=== PATIENT | male | born 1955 | race Caucasian/White ===

== ENCOUNTER 2024-03-08 09:57 | Outpatient (REF) | payer MEDICARE, SELFPAY | END 2024-03-08 09:58 | disposition home or self-care (01) | LOC: HO.BBR 09:57 | PROVIDERS: PCP Internal Medicine Endocrinology, Diabetes & Metabolism; Visit Provider Internal Medicine Hematology & Oncology | DX: D75.1 Secondary polycythemia (principal) | CPT/HCPCS: 85014; 85018; 99195 ==

== ENCOUNTER 2024-06-08 09:31 | Outpatient (REF) | payer MEDICARE, SELFPAY | END 2024-06-08 09:32 | disposition home or self-care (01) | LOC: HO.BBR 09:31 | PROVIDERS: Visit Provider Internal Medicine Hematology & Oncology | DX: D75.1 Secondary polycythemia (principal) | CPT/HCPCS: 85014; 85018; 99195 ==

== ENCOUNTER 2024-09-15 09:22 | Outpatient (REF) | payer MEDICARE, SELFPAY | END 2024-09-15 09:23 | disposition home or self-care (01) | LOC: HO.BBR 09:22 | PROVIDERS: PCP Internal Medicine Endocrinology, Diabetes & Metabolism; Visit Provider Internal Medicine Hematology & Oncology | DX: D75.1 Secondary polycythemia (principal) | CPT/HCPCS: 85014 ==

== ENCOUNTER 2024-12-21 09:22 | Outpatient (REF) | payer MEDICARE, SELFPAY | END 2024-12-21 09:23 | disposition home or self-care (01) | LOC: HO.BBR 09:22 | PROVIDERS: Visit Provider Internal Medicine Hematology & Oncology | DX: D75.1 Secondary polycythemia (principal) | CPT/HCPCS: 85014; 85018; 99195 ==

== ENCOUNTER 2024-12-31 09:27 | Outpatient (REF) | payer MEDICARE, SELFPAY ==
--- OUTSIDE RECORDS SUMMARY | 2024-12-31 10:02 | XMS_ITS | Encounter Summary ---
Author Organization [facility] Address [address] [place] [address] Care Team Providers Care Classer Name Role Phone Sunday Bennett MD Primary Care Provider [phone] Jorge Alberto Huff MD Primary Care Provider [phone] Cecilia Zavala PhD [facility] Reason for Visit * Reason Comments Medication Refill Encounter Details Date Type Department Care Team (Late st Contact Info) Description 07/13/2018 Refill [facility] [address] [phone] Rene Hansen MD [address] [place] [address] Low back pain Social History Tobacco Use Types Packs/Day Years Used Date Smoking Tobacco: Never Alcohol Use Standard Drinks/Week Comments No 0 (1 standard drink = 0.6 oz pur e alcohol) Sex and Gender Information Value Date Recorded Sex Assigned at Male 03/10/2023 8:28 AM EDT Gender Identity Male 03/10/2023 8:28 AM EDT Sexual Orientation Heterosexual (straight) 03/10 8:28 AM EDT documented as of this encounter Plan of Treatment Not on file documented as of this encounter Visit Diagnoses Diagnosis Low back pain Lumbago documented in this encounter Care Teams Classer Relationship Specialty Start Date End Date Sunday Bennett MD [address] [place] [address],[place] [address] PCP - General 01/10/17 08/15/21 Jorge Alberto Huff MD [address] [place] [address] PCP - General Endocrinology 08/16/21 Cecilia Zavala, PhD [address] [place] [address] Clinical Psychologist Psychology 03/22/22 Dr. Jorge Alberto Lebron Physician 01/10/17 documented as of this encounter
--- OUTSIDE RECORDS SUMMARY | 2024-12-31 10:02 | XMS_ITS | Encounter Summary ---
Author Organization [facility] Address [address] [place] [address] Care Team Providers Care Timber Framer Helper Name Role Phone Sunday Bennett MD Primary Care Provider [phone] Jorge Alberto Huff MD Primary Care Provider [phone] Cecilia Zavala PhD Unavailabl e Encounter Details Date Type Department Care Team (Late st Contact Info) Description 10/15/2017 Scanned Document [facility] [address] [place] [phone] Mikala Magallon MD [address] [place] [address] Social History Tobacco Use Types Packs/Day Years Used Date Smoking Tobacco: Never Assessed Sex and Gender Information Value Date Recorded Sex Assigned at Male 03/10/2023 8:28 AM EDT Gender Identity Male 03/10/2023 8:28 AM EDT Sexual Orientation Heterosexual (straight) 03/10 8:28 AM EDT documented as of this encounter Plan of Treatment Not on file documented as of this encounter Visit Diagnoses Not on filedocumented in this encounter Care Teams Timber Framer Helper Relationship Specialty Start Date End Date Sunday Bennett MD [address] [place] [address],[address] [address] PCP - General 01/10/17 08/15/21 Jorge Alberto Huff MD [address] [place] [address] [address] [place] [address] PCP - General Endocrinology 08/16/21 Cecilia Zavala, PhD [address] [place] [address] [address] [place] [address] Clinical Psychologist Psychology 03/22/22 Dr. Jorge Alberto Lebron Physician 01/10/17 documented as of this encounter
--- OUTSIDE RECORDS SUMMARY | 2024-12-31 10:02 | XMS_ITS | Encounter Summary ---
Author Organization [facility] Address [address] [place] [address] Care Team Providers Care Primary Health Organisation Manager Name Role Phone Sunday Bennett MD Primary Care Provider [phone] Jorge Alberto Huff MD Primary Care Provider [phone] Cecilia Zavala PhD Unavailabl e Reason for Visit * Reason Comments Medication Refill Encounter Details Date Type Department Care Team (Late st Contact Info) Description 10/07/2019 Refill [facility] [address] [phone] Mariann Levin PA [address] [phone] Low back pain Social History Tobacco Use Types Packs/Day Years Used Date Smoking Tobacco: Never Smokeless Tobacco: Never Alcohol Use Standard Drinks/Week Comments [...] Lumbago documented in this encounter Care Teams Primary Health Organisation Manager Relationship Specialty Start Date End Date Sunday Bennett MD [address] [place] [address],[place] [address] PCP - General 01/10/17 08/15/21 Jorge Alberto Huff MD [address] [place] [address] 210 [place] [address] PCP - General Endocrinology 08/16/21 Cecilia Zavala, PhD [address] [place] [address] Clinical Psychologist Psychology 03/22/22 Dr. Jorge Alberto Lebron Physician 01/10/17 documented as of this encounter
--- OUTSIDE RECORDS SUMMARY | 2024-12-31 10:02 | XMS_ITS | Clinical Summary ---
Author Organization [facility] Address [address] [place] [address] Care Team Providers Care Drill Press Set Up Operator Radial Name Role Phone Jorge Alberto Huff MD Primary Care Provider [phone] Cecilia Zavala PhD Unavailabl e Allergies Active Allergy Reactions Criticality Noted Date Comments Penicillins Unknown/Patient and Family Unable to Define Medium 10/11/2016 Medications Medication Sig Dispensed Refills Start Date End Date Status atorvastatin (LIPITOR) 10 MG tablet every morning. 10/02/2016 Active cholecalciferol (VITAMIN D3) 1000 units capsule Take 1 capsule (1,000 Units total) by mouth every morning. Active Alpha-Lipoic Acid (LIPOIC ACID PO) Take by mouth every morning. Active famotidine (PEPCID) 20 MG tabletIndications:P ain in joint, pelvic region and thigh, unspecified laterality TAKE 1 TABLET THREE TIMES A DAY WITH IBUPROFEN 270 tablet 1 11/06/2018 Active Additional Information Patient taking differently: As needed, TAKE 1 TABLET THREE TIMES A DAY WITH IBUPROFEN, Reason: Other, Reported on 02/25/2023 ONETOUCH VERIO strip daily. for testing 3 10/02/2019 Active ONETOUCH DELICA LANCETS FINE Misc lancet daily. for testing 3 10/17/2019 Active Dermatological Products, Misc. (EpiCeram) lotion every morning. 12/08/2020 Act radames melatonin 10 MG capsule Take 1 capsule (10 mg total) by mouth nightly. Active Jardiance 10 MG tablet every morning. 02/07/2022 Active hydrOXYzine HCl (ATARAX) 10 MG tablet as needed. 03/27/2022 Active metFORMIN (GLUCOPHAGE) 500 MG tablet Take 1 tablet (500 mg total) by mouth 2 (two) times a day. 12/26/2022 Active DULoxetine (CYMBALTA) 60 MG capsuleIndications: Polyneuropathy associated with critical illness TAKE 1 CAPSULE BY MOUTH EVERY MORNING 90 capsule 10/06/2023 Active Eliquis 5 MG tablet Take 5 mg by mouth 2 (two) times a day. 08/22/2023 Active tirzepatide (Mounjaro) 2.5 mg/0.5 mL pen-injector Inject under the skin. 11/19/2023 Active Active Problems Problem Noted Date Diagnosed Date Chronic pain syndrome 09/27/2022 Polyneuropathy associated with critical illness 01/04/2018 Low back pain without sciatica 10/11/2016 Pain in both lower extremities 10/11/2016 Klippel's disease 03/15/2016 Brachial neuritis 03/15/2016 Cervicalgia 03/15/2016 Low back pain 03/15/2016 Myalgia and myositis 03/15/2016 Pain in joint, shoulder region 03/15/2016 Pain in joint, pelvic region and thigh 6 Postherpetic neuralgia 03/15/2016 Family History Medical History Relation Name Comments Pancreatic cancer Father Breast cancer Mother Diabetes Sister 1 Uterine cancer Sister 1 Breast cancer Sister 2 Relation Name Status Comments Father Mother Sister 1 Sister 2 Alive Social History Tobacco Use Types Packs/Day Years Used Date Smoking Tobacco: Never Smokeless Tobacco: Never Tobacco Cessation:Counseling Given: Not Answered Alcohol Use Standard Drinks/Week Comments No 0 (1 standard drink = 0.6 oz pur e alcohol) AUDIT-C Answer Date Recorded Q1: How often do you have a drink containing alcohol? Never 02/25/2023 Q2: How many drinks containi ng alcohol do you have on a typical day when you are drinking? Patient does not drink Q3: How often do you have si x or more drinks on one occasion? Never 02/25/2023 PHQ-2 Answer Date Recorded PHQ-2 Total Score 0 03/10/2023 Sex and Gender Information Value Date Recorded Sex Assigned at Male 03/10/2023 8:28 AM EDT Gender Identity Male 03/10/2023 8:28 AM EDT Sexual Orientation Heterosexual (straight) 03/10 8:28 AM EDT Last Filed Vital Signs Vital Sign Reading Time Taken Comments Blood Pressure 168/93 11/20/2023 3:45 PM EST Pulse 87 11/20/2023 3:45 PM EST Temperature 36.7 ??C (98 ??F) 11/20/2023 3:45 PM EST Respiratory Rate 18 11/20/2023 3:45 PM EST Oxygen Saturation 92% 11/20/2023 3:45 PM EST Inhaled Oxygen Concentration - - Weight 108 kg (238 lb) 11/20/2023 3:45 PM EST Height 182.9 cm (6') 11/20/2023 3:45 PM EST Body Mass Index 32.28 11/20/2023 3:45 PM EST Plan of Treatment Health Maintenance Due Date Last Done Comments Hepatitis C Virus Screening 1953 Microalbumin/Creatinine Ratio Urine 1971 DTaP/Tdap/Td Vaccines (1 - Tdap) 1972 Colonoscopy 1998 Pneumococcal Vaccines 50+ (1 of 1 - PCV) 2003 Zoster (Shingles) Vaccine (1 of 2) 2003 RSV Vaccine 60 years and older and Patients (1 - Risk 60-74 years 1-dose series) 2013 Influenza Vaccine 07/01/2024 08/22/2023, , 08/30/2022, Additional history exists COVID-19 Vaccine ( season) 2024 08/28/2023, 08/15/2022, 03/18/2022, Additional history exists Foot Exam Discontinued 01/10/2017 Hemoglobin A1C Discontinued 02/27/2023, 05/31/2013 Hepatitis B Vaccines Aged Out No long er eligible based on patient's age to complete this topic Medical Devices Implanted Type Area Machine Joiner Cementer Device Identifier Shelf Expiration Date Model / Serial / Lot [id number] Trial Lead Kit 50cm Slimtip - [id number] Implanted:Qt y: 1 on 02/05/2023 by Ghassan Tejada MD at [facility] Stimulator [employer] 09/23/2024 [id number] / [id number] / [id number] Trial Lead Kit 50cm Slimtip - [id number] Implanted:Qt y: 1 on 02/05/2023 by Ghassan Tejada MD at [facility] Stimulator [employer] 07/21/2024 [id number] / [id number] / [id number] Proclaim Invisible Trial Header, Drg Epg - [id number] Implanted:Qt y: 1 on 02/05/2023 by Ghassan Tejada MD at [facility] Stimulator [employer] 03/19/2024 [id number] / / [id number] Trial Lead Kit 50cm Slimtip - [id number] Implanted:Qt y: 1 on 02/05/2023 by Ghassan Tejada MD at [facility] Stimulator N/A: Spine Lumbar [employer] 09/23/2024 [id number] / / [id number] Trial Lead Kit 50cm Slimtip - [id number] Implanted:Qt y: 1 on 02/05/2023 by Ghassan Tejada MD at [facility] Stimulator N/A: Spine Lumbar [employer] [id number] 07/21/2024 [id number] / [id number] / [id number] Slim Tip Drg Implanted:Qt y: 1 on 03/10/2023 by Karey Jeong MD at [facility] 06/20/2023 / [id number] / [id number] Slim Tip Drg Implanted:Qt y: 1 on 03/10/2023 by Karey Jeong MD at [facility] 03/11/2024 / [id number] / Proclaim Drg Implanted:Qt y: 1 on 03/10/2023 by Karey Jeong MD at [facility] Right: Sacrum Description:Cat#[id number] CONTROL SYSTEM Procedures Procedure Name Priority Date/Time Associated Diagnosis Comments HEMOGLOBIN A1C WITH ESTIMATED AVERAGE GLUCOSE Routine 02/27/2023 9:22 AM EDT Elective surgery from Last 3 Months or Most Recently Relevant to Health Maintenance Results * (ABNORMAL) HEMOGLOBIN A1C WITH ESTIMATED AVERAGE GLUCOSE (02/27/2023 9:22 AM EDT) Hemoglobin A1C 7.1(H) <5.7 % 02/27/2023 3:11 PM EDT [facility] Comment: A1c% ? Interpretation 5.7 - 6.0 ?Increase risk of diabetes 6.1 - 6.4 ?Higher risk of diabetes > or = 6.5 ?? Consistent with diabetes Diabetes Care, 33(Supp 1):S1-S61, 2009 Estimated Average Glucose 157 mg/dL 02/27/2023 3:11 PM EDT [facility] Blood specimen / Unknown 02/27/2023 9:22 AM EDT 02/27/2023 2:36 PM EDT Sneha Dia PA-C LAB BLOOD [facility] LAB See Below [facility] [address] [place] [address] from Last 3 Months or Most Recently Relevant to Health Maintenance Advance Directives * Full Code (Latest Code Status on File) Date Activated Date Inactivated Comments 03/10/2023 1:37 PM * Full Code Date Activated Date Inactivated Comments 03/10/2023 7:46 AM 03/10/2023 1:37 PM Care Teams Drill Press Set Up Operator Radial Relationship Specialty Start Date End Date Jorge Alberto Huff MD [address] [place] [address] [address] [place] [address] PCP - General Endocrinology 08/16/21 Cecilia Zavala, PhD [address] [place] [address] Clinical Psychologist Psychology 03/22/22 Dr. Jorge Alberto Lebron Physician 01/10/17
--- OUTSIDE RECORDS SUMMARY | 2024-12-31 10:02 | XMS_ITS | Encounter Summary ---
Author Organization [facility] Address [address] [place] [address] Care Team Providers Care Ux Design Lead Name Role Phone Sunday Bennett MD Primary Care Provider [phone] Jorge Alberto Huff MD Primary Care Provider [phone] Cecilia Zavala PhD [facility] Reason for Visit * Reason Comments Medication Refill Encounter Details Date Type Department Care Team (Late st Contact Info) Description 11/09/2016 Refill [facility] [address] [phone] Mikala Magallon MD [address] [place] [address] Social History Tobacco Use Types Packs/Day Years [...] on filedocumented in this encounter Care Teams Ux Design Lead Relationship Specialty Start Date End Date Sunday Bennett MD [address] [place] [address],[place] [address] PCP - General 01/10/17 08/15/21 Jorge Alberto Huff MD [address] [place] [address] 210 [place] [address] PCP - General Endocrinology 08/16/21 Cecilia Zavala, PhD [address] [place] [address] [address] [place] [address] Clinical Psychologist Psychology 03/22/22 Dr. Jorge Alberto Lebron Physician 01/10/17 documented as of this encounter
--- OUTSIDE RECORDS SUMMARY | 2024-12-31 10:02 | XMS_ITS ---
Author Name [facility] Organization Unknown History of Medication Use Medication Directions Dispensed Refills Start Date End Date Stat Dermatological Products, Misc. (EpiCeram) lotion every morning. 10/02/2019 act radames famotidine (PEPCID) 20 MG tablet TAKE 1 TABLET THREE TIMES A DAY WITH IBUPROFEN 11/06/2018 active melatonin 10 MG capsule Take 1 capsule (10 mg total) by mouth nightly. active atorvastatin (LIPITOR) 10 MG tablet every morning. 10/02/2016 active Epiceram controlled release topical skin barrier emulsion 04/15/2019 active hydrOXYzine HCl (ATARAX) 10 MG tablet as needed. 03/27/2022 act radames metFORMIN (GLUCOPHAGE) 500 MG tablet Take 1 tablet (500 mg total) by mouth 2 (two) times a day. 12/26/2022 active metoPROLOL SUCCINATE (TOPROL-XL) 50 MG 24 hr tablet Take 50 mg by mouth daily. 10/19/2018 active Eliquis 5 MG tablet Take 5 mg by mouth 2 (two) times a day. 08/22/2023 active Problems Problem Status Onset Date Problem Type Date of Resolution Source Calcaneal spur, right foot active 2019-03-18 ProblemAct ENS_PODCRCT Xerosis cutis active 2020-12-08 ProblemAct ENS_ PODCRCT Obesity, unspecified active 2019-03-18 ProblemAct ENS_PODCRCT Skin fissures - including other specified disorders of the skin and subcutaneous tissue active 2020-01-11 ProblemAct ENS_PODC RCT Neuropathy active 2019-03-18 ProblemAct ENS_POD CRCT Wishes to postpone menstruation active 2019-10-12 ProblemAct ENS_PODCRCT Plantar fasciitis active 2019-03-18 ProblemAct ENS_PODCRCT Contracture of tendo achilles active 2019-03-18 ProblemAct ENS_PODCRCT Type 2 diabetes mellitus with other diabetic neurological complication active 2019-03-18 ProblemAct ENS_PODCRCT Type 2 diabetes mellitus with diabetic polyneuropathy active 2024-11-10 EncounterDiagnosisAct ENS_ PODCRCT Tinea pedis active 2024-01-09 ProblemAct ENS_PO DCRCT Contracture of tendo achilles active 2019-03-18 ProblemAct ENS_PODCRCT Klippel's disease active 2016-03-15 ProblemAct [facility] Cervicalgia active 2016-03-15 ProblemAct [facility] Pain in joint, pelvic region and thigh active 2016-03-15 ProblemAct [facility] Chronic pain syndrome active 2022-09-27 ProblemAct [facility] Postherpetic neuralgia active 2016-03-15 ProblemAct [facility] Myalgia and myositis active 2016-03-15 ProblemAct [facility] Low back pain without sciatica active 2016-10-11 ProblemAct [facility] Pain in joint, shoulder region active 2016-03-15 ProblemAct [facility] Polyneuropathy associated with critical illness active 2018-01-04 ProblemAct [facility] Brachial neuritis active 2016-03-15 ProblemAct [facility] Pain in both lower extremities active 2016-10-11 ProblemAct [facility]
--- OUTSIDE RECORDS SUMMARY | 2024-12-31 10:02 | XMS_ITS | Encounter Summary ---
Author Organization [facility] Address [address] [place] [address] Care Team Providers Care Accounting Machine Operator Name Role Phone Sunday Bennett MD Primary Care Provider [phone] Jorge Alberto Huff MD Primary Care Provider [phone] Cecilia Zavala PhD Unavailabl e Reason for Visit * Reason Comments Medication Refill Encounter Details Date Type Department Care Team (Late st Contact Info) Description 09/02/[address] [facility] [address] [phone] Mikala Magallon MD [address] [place] [address] Social History Tobacco Use Types Packs/Day Years Used Date Smoking Tobacco: Never Assessed Sex and Gender Information Value Date Recorded Sex Assigned at Male 03/10/2023 8:28 AM EDT Gender Identity Male 03/10/2023 8:28 AM EDT Sexual Orientation Heterosexual (straight) 03/10 8:28 AM EDT documented as of this encounter Miscellaneous Notes * Telephone Encounter - Paul Tripp LPN - 09/02/2016 9:33 AM EDT Too early to fill rx. documented in this encounter Plan of Treatment Not on file documented as of this encounter Visit Diagnoses Not on filedocumented in this encounter Care Teams Accounting Machine Operator Relationship Specialty Start Date End Date Sunday Bennett MD [address] [place] [address] [address] [facility] [place] [address] PCP - General 01/10/17 08/15/21 Jorge Alberto Huff MD [address] [place] [address] 210 [place] [address] PCP - General Endocrinology 08/16/21 Cecilia Zavala, PhD [address] [place] [address] Clinical Psychologist Psychology 03/22/22 Dr. Jorge Alberto Lebron Physician 01/10/17 documented as of this encounter
--- OUTSIDE RECORDS SUMMARY | 2024-12-31 10:02 | XMS_ITS | Encounter Summary ---
Author Organization [facility] Address [address] [place] [address] Care Team Providers Care Heavy Equipment Service Manager Name Role Phone Jorge Alberto Huff MD Primary Care Provider [phone] Cecilia Zavala PhD [facility] Encounter Details Date Type Department Care Team (Late st Contact Info) Description 01/06/2023 Telephone [facility] [address] [place] [phone] Ghassan Tejada MD Needs Valid Address Social History Tobacco Use Types Packs/Day Years Used Date Smoking Tobacco: Never Smokeless Tobacco: Never Alcohol Use Standard Drinks/Week Comments No 0 (1 standard drink = 0.6 oz pur e alcohol) PHQ-2 Answer Date Recorded PHQ-2 Total Score 0 03/22/2022 Sex and Gender Information Value Date Recorded Sex Assigned at Male 03/10/2023 8:28 AM EDT Gender Identity Male 03/10/2023 8:28 AM EDT Sexual Orientation Heterosexual (straight) 03/10 8:28 AM EDT documented as of this encounter Miscellaneous Notes * Telephone Encounter - Roz Donis LPN - 01/06/2023 4:19 PM EST Rx for Cymbalta RF'd please note Pt is pending SCS trial 02/05/23 documented in this encounter Plan of Treatment Not on file documented as of this encounter Visit Diagnoses Diagnosis Polyneuropathy associated with critical illness documented in this encounter Care Teams Heavy Equipment Service Manager Relationship Specialty Start Date End Date Jorge Alberto Huff MD [address] [place] [address] 210 [place] [address] PCP - General Endocrinology 08/16/21 Cecilia Zavala, PhD [address] [place] [address] Clinical Psychologist Psychology 03/22/22 Dr. Jorge Alberto Lebron Physician 01/10/17 documented as of this encounter
--- OUTSIDE RECORDS SUMMARY | 2024-12-31 10:02 | XMS_ITS | Encounter Summary ---
Author Organization [facility] Address [address] [place] [address] Care Team Providers Care Sales Clerk Food Name Role Phone Sunday Bennett MD Primary Care Provider [phone] Jorge Alberto Huff MD Primary Care Provider [phone] Cecilia Zavala PhD Unavailabl e Reason for Visit * Reason Comments Medication Refill Encounter Details Date Type Department Care Team (Late st Contact Info) Description 04/20/2017 Refill [facility] [address] [phone] Mikala Magallon MD [address] [place] [address] Low back pain Social History Tobacco Use [...] Lumbago documented in this encounter Care Teams Sales Clerk Food Relationship Specialty Start Date End Date Sunday Bennett MD [address] [place] [address],[place] [address] PCP - General 01/10/17 08/15/21 Jorge Alberto Huff MD [address] [place] [address] 210 [place] [address] PCP - General Endocrinology 08/16/21 Cecilia Zavala, PhD [address] [place] [address] Clinical Psychologist Psychology 03/22/22 Dr. Jorge Alberto Lebron Physician 01/10/17 documented as of this encounter
--- OUTSIDE RECORDS SUMMARY | 2024-12-31 10:02 | XMS_ITS | Encounter Summary ---
Author Organization [facility] Address [address] [place] [address] Care Team Providers Care Senior Javascript Developer Name Role Phone Sunday Bennett MD Primary Care Provider [phone] Jorge Alberto Huff MD Primary Care Provider [phone] Cecilia Zavala PhD Unavailabl e Encounter Details Date Type Department Care Team (Late st Contact Info) Description 08/09/2019 Scanned Document [facility] [address] [phone] Cam Claros MD 65 [facility] [address] [place] [address] Social History Tobacco Use Types Packs/Day Years [...] on filedocumented in this encounter Care Teams Senior Javascript Developer Relationship Specialty Start Date End Date Sunday Bennett MD [address] [place] [address],[place] [address] PCP - General 01/10/17 08/15/21 Jorge Alberto Huff MD [address] [place] [address] 210 [place] [address] PCP - General Endocrinology 08/16/21 Cecilia Zavala, PhD [address] [place] [address] Clinical Psychologist Psychology 03/22/22 Dr. Jorge Alberto Lebron Physician 01/10/17 documented as of this encounter
--- OUTSIDE RECORDS SUMMARY | 2024-12-31 10:02 | XMS_ITS | Encounter Summary ---
Author Organization [facility] Address [address] [place] [address] Care Team Providers Care Nutrition Club Ambassador Name Role Phone Sunday Bennett MD Primary Care Provider [phone] Jorge Alberto Huff MD Primary Care Provider [phone] Cecilia Zavala PhD Unavailabl e Reason for Visit * Reason Comments Medication Refill Encounter Details Date Type Department Care Team (Late st Contact Info) Description 12/05/2017 Refill [facility] [address] [address] Mariann Levin PA [address] [phone] Low back pain, unspecified back pain laterality, unspecified chronicity, with sciatica presence unspecified Social History Tobacco Use Types Packs/Day Years [...] this encounter Visit Diagnoses Diagnosis Low back pain, unspecified back pain laterality, unspecified chronicity, with sciatica presence unspecified documented in this encounter Care Teams Nutrition Club Ambassador Relationship Specialty Start Date End Date Sunday Bennett MD [address] [place] [address],[address] [place] [address] PCP - General 01/10/17 08/15/21 Jorge Alberto Huff MD [address] [place] [address] Drive John[address] [place] [address] PCP - General Endocrinology 08/16/21 Cecilia Zavala, PhD [address] [place] [address] [address] [place] [address] Clinical Psychologist Psychology 03/22/22 Dr. Jorge Alberto Lebron Physician 01/10/17 documented as of this encounter
--- OUTSIDE RECORDS SUMMARY | 2024-12-31 10:02 | XMS_ITS | Encounter Summary ---
Author Organization [facility] Address [address] [place] [address] Care Team Providers Care Boiler Water Tester Name Role Phone Jorge Alberto Lebron MD Primary Care Provider [phone] Reason for Visit * Reason Comments Follow-up Encounter Details Date Type Department Care Team (Latest Contact Info) Description 12/06/2024 3:30 PM EST Office Visit [facility] [address] [place] [phone] Pablo Wesley MD [address] [place] [address],[place] [address] Paroxysmal atrial fibrillation (CMS/HCC) (Primary Dx); Obstructive sleep apnea syndrome; Hypertrophic cardiomyopathy (CMS/HCC); Nonrheumatic mitral valve regurgitation Social History Tobacco Use Types Packs/Day Years Used Date Smoking Tobacco: Never Smokeless Tobacco: Never Alcohol Use Standard Drinks/Week Comments No 0 (1 standard drink = 0.6 oz pur e alcohol) Sex and Gender Information Value Date Recorded Sex Assigned at Not on file Gender Identity Not on file Sexual Orientation Not on file Job Start Date Occupation Industry Not on file Not on file Not on file documented as of this encounter Last Filed Vital Signs Vital Sign Reading Time Taken Comments Blood Pressure 138/84 12/06/2024 3:20 PM EST Pulse 101 12/06/2024 3:20 PM EST Temperature - - Respiratory Rate - - Oxygen Saturation 93% 12/06/2024 3:20 PM EST Inhaled Oxygen Concentration - - Weight 110 kg (241 lb 12.8 oz) 12/06/2024 3:20 P M EST Height 182.9 cm (6') 12/06/2024 3:20 PM EST Body Mass Index 32.79 12/06/2024 3:20 PM EST documented in this encounter Progress Notes * Pablo Wesley MD - 12/06/2024 3:30 PM ESTAssociated Problem(s): Paroxysmal atrial fibrillation (CMS/HCC) Paroxysmal atrial fibrillation in the past, with untreated TAYLOR and HCM as likely underlying contributors. He has tolerated Eliquis for stroke prophylaxis. Last episode of Afib was in 2020. Cardioversion was performed. No significant bleeding. The patient has frequent premature supraventricular beats on today's tracing but no evidence of atrial fibrillation. He will continue Eliquis. * Pablo Wesley MD - 12/06/2024 3:30 PM ESTAssociated Problem(s): Obstructive sleep apnea syndrome Patient has been unable to tolerate CPAP device therapy despite multiple attempts over the years. Positional changes and aggravating factors were reviewed. The patient has obesity, diabetes and sleepapnea syndrome. All 3 of these conditions have been favorably influenced by initiation of GLP-1 receptor agonist therapy. The patient is interested in pursuing this but has concerns about cost. He looks forward to discussing initiation of therapy with Dr. Lebron at the time of their next visit. * Pablo Wesley MD - 12/06/2024 3:30 PM ESTAssociated Problem(s): Hypertrophic cardiomyopathy (CMS/HCC) The patient has asymmetric septal hypertrophy and diffuse LVH but no evident infiltrative disorder by MRI and no clinical evidence of CHF or VT. * Pablo Wesley MD - 12/06/2024 3:30 PM ESTAssociated Problem(s): Nonrheumatic mitral valve regurgitation Severe MR seen in the setting of bacteremia in 2012 subsequently improved to only mild MR followingsuccessful antibiotic therapy. Periodic surveillance echocardiography will be pursued. In addition the patient has had severe TR in the past and this has also significantly reduced. The most recent echocardiogram demonstrates slight worsening of mitral regurgitation which is now in the mild to moderate range. * Pablo Wesley MD - 12/06/2024 3:30 PM EST PCP: Jorge Alberto Lebron MD HPI: Sushil Brannon is a 69 y.o. old male with past medical history of 2013 lumbar diskitis and presumed bacteremia with severe eccentric mitral regurgitation status post successful course of antibiotics with now only mild mitral insufficiency. He has additional history of atrial fibrillation status post GAIL cardioversion and on Eliquis. He also has severe concentric left ventricular hypertrophy, asymmetric septal hypertrophy, neuropathy, sleep apnea unable to tolerate sleep mask, depression and anemia. I last saw Sushil in October 2023 at which time the patient was stable from a cardiac standpoint. PYP scan did not show amyloidosis. No changes were made to medications. He was doing well with only mild DEL CID at the time of his last appointment here in May 2024. Today the patient presents for a routine follow up following outpatient echocardiography last month(Oct 2024). In general he feels well. He gets mild exertional shortness of breath. No chest pain orpalpitations. No lightheadedness, presyncope or syncopal. No orthopnea, paroxysmal nocturnal dyspnea, abdominal distention, cough, fatigue, edema or abrupt increases in weight. He reports adherence with his medications. No bleeding or abnormal bruising on the Eliquis. ACTIVE MEDICATIONS: Outpatient Medications Marked as Taking for the 12/06/24 encounter (Office Visit) with Pablo Wesley MD Medication Sig Dispense Refill ALPHA LIPOIC ACID ORAL Take by mouth 1 (one) time each day. apixaban (Eliquis) 5 mg tablet Take 1 tablet (5 mg total) by mouth 2 (two) times a day. atorvastatin (LIPITOR) 10 mg tablet Take 1 tablet (10 mg total) by mouth 1 (one) time each day. cholecalciferol (VITAMIN D-3) 25 mcg (1,000 unit) tablet Take by mouth 1 (one) time each day. DULoxetine (CYMBALTA) [address] capsule Take 1 capsule (60 mg total) by mouth 1 (one) time each day. empagliflozin (Jardiance) 10 mg tablet Take by mouth 1 (one) time each day. famotidine (PEPCID) 20 mg tablet Take 1 tablet (20 mg total) by mouth if needed. ibuprofen (ADVIL,MOTRIN) 800 mg tablet Take 1 tablet (800 mg total) by mouth if needed. melatonin 10 mg tablet Take by mouth if needed. metFORMIN (GLUCOPHAGE) 500 mg tablet Take 1 tablet (500 mg total) by mouth 2 (two) times a day withmeals. PAST MEDICAL HISTORY: Patient Active Problem List Diagnosis Date Noted Date Diagnosed Pneumonia 10/05/2024 Nonrheumatic mitral valve regurgitation 10/05/2024 Lumbar discitis 10/05/2024 Heart murmur 10/05/2024 Obstructive sleep apnea syndrome 08/13/2021 Paroxysmal atrial fibrillation (CMS/HCC) 08/09/2021 Hypertrophic cardiomyopathy (CMS/HCC) 02/15/2021 Resolved Problems No resolved problems to display. ALLERGIES: Allergies Allergen Reactions Cat Dander Penicillins FAMILY HISTORY: Family History Problem Relation Name Age of Onset Other cancer Mother Other cancer Father Other cancer Maternal Grandmother Other cancer Maternal Grandfather Other cancer Other Diabetes Other Uterine cancer Other Pancreatic cancer Other Breast cancer Other Other (Other: Peripheral Neuropathy) Other SOCIAL HISTORY: Social History Tobacco Use Smoking status: Never Smokeless tobacco: Never Substance Use Topics Alcohol use: No REVIEW OF SYSTEMS: GENERAL: Negative for malaise, significant weight loss and fever HEENT: No changes in hearing or vision, no nose bleeds or other nasal problems, Negative for frequent or significant headaches NECK: Negative for goiter, pain and significant neck swelling RESPIRATORY: No cough, wheezing or shortness of breath CARDIOVASCULAR: SEE HPI GI: Negative for abdominal discomfort, blood in stools or black stools : Negative for dysuria, frequency and incontinence MUSCULOSKELETAL: Negative for joint pain or swelling, back pain, and muscle pain. SKIN: No lesions, rash, or itching PSYCH: No sleep disturbances, depression or major stressors ENDOCRINE: Negative for cold or heat intolerance, polyuria, polydipsia and goiter. NEURO: no persistent headache, fainting, seizures, strokes or TIAs, weakness or numbness PHYSICAL EXAM: Vitals: 12/06/24 1520 BP: 138/84 BP Location: Right arm Patient Position: Sitting BP Cuff Size: Large adult Pulse: 101 SpO2: 93% Weight: 110 kg (241 lb 12.8 oz) Height: 1.829 m (72 ) APPEARANCE: Alert and in no acute distress, obese. EYES: PERRL, conjunctiva and sclera normal EARS: External ears normal. NOSE/SINUS: Nares normal. Septum midline. Mucosa normal. No drainage or sinus tenderness. MOUTH/THROAT: no erythema or exudates NECK: JVP less then 8cm H2O, No bruits., Neck supple, no adenopathy or mass HEART: Irreg irreg with normal S1 and S2, 2/6 VIRY, no diast murmurs, no gallops, no JVD appreciated CHEST: non-tender LUNG: clear to auscultation ABDOMEN: Bowel sounds normoactive, no bruits, soft, non-tender, without organomegaly or palpable masses EXTREMITIES: Extremities warm and well perfused without clubbing, cyanosis, or edema NEURO: Awake, alert and oriented x 3 and unsteady u gait SKIN: Skin color, texture, turgor normal. No rashes or lesions. EKG: Sinus rhythm with frequent premature supraventricular complexes, left anterior fascicular block, LVH, poor R wave progression. No significant change. TESTING: ECHOCARDIOGRAPHY 10/2024: Left ventricle cavity size is normal. There is severe asymmetric mid septal hypertrophy. Systolic function is normal with an ejection fraction of 55-60%. There are no regional LV wall motion abnormalities. Moderate mitral regurgitation, central Dilatation of The Sinus of Valsalva is (3.9 cm). The ascending aorta is (4.0 cm). Compared to the prior study from 2022, the degree of mitral regurgitation has increased from mild to moderate. Notable there is only mild tricuspid regurgitation. TR was severe in 2020. ASSESSMENT/PLAN: Assessment & Plan Paroxysmal atrial fibrillation (CMS/HCC) Paroxysmal atrial fibrillation in the past, with untreated TAYLOR and HCM as likely underlying contributors. He has tolerated Eliquis for stroke prophylaxis. Last episode of Afib was in 2020. Cardioversion was performed. No significant bleeding. The patient has frequent premature supraventricular beats on today's tracing but no evidence of atrial fibrillation. He will continue Eliquis. Obstructive sleep apnea syndrome Patient has been unable to tolerate CPAP device therapy despite multiple attempts over the years. Positional changes and aggravating factors were reviewed. The patient has obesity, diabetes and sleepapnea syndrome. All 3 of these conditions have been favorably influenced by initiation of GLP-1 receptor agonist therapy. The patient is interested in pursuing this but has concerns about cost. He looks forward to discussing initiation of therapy with Dr. Lebron at the time of their next visit. Hypertrophic cardiomyopathy (CMS/HCC) The patient has asymmetric septal hypertrophy and diffuse LVH but no evident infiltrative disorder by MRI and no clinical evidence of CHF or VT. Nonrheumatic mitral valve regurgitation Severe MR seen in the setting of bacteremia in 2012 subsequently improved to only mild MR followingsuccessful antibiotic therapy. Periodic surveillance echocardiography will be pursued. In addition the patient has had severe TR in the past and this has also significantly reduced. The most recent echocardiogram demonstrates slight worsening of mitral regurgitation which is now in the mild to moderate range. The [facility] team will continue to co-manage this patient following the plan of care as established by my initial visit and as per AHA guidelines for ongoing management and surveillance of PAF, HCM and valvular heart disease. . This will include medication titration, initiation of appropriate medications and further titration, and diagnostic studies to manage this disease process. documented in this encounter Plan of Treatment Not on file documented as of this encounter Procedures Procedure Name Priority Date/Time Associated Diagnosis Comments ECG 12-LEAD Routine 12/06/2024 4:10 PM EST Paroxysmal atrial fibrillation (CMS/HCC) Obstructive sleep apnea syndrome Hypertrophic cardiomyopathy (CMS/HCC) Nonrheumatic mitral valve regurgitation documented in this encounter Results * ECG 12 lead (12/06/2024 4:10 PM EST) Ventricular Rate ECG 90 BPM GEMUSE Atrial Rate 90 BPM GEMUSE P-R Interval 168 ms GEMUSE QRS Duration 106 ms GEMUSE Q-T Interval 370 ms GEMUSE QTc 452 ms GEMUSE P Wave [place] 66 degrees GEMUSE R [place] -76 degrees GEMUSE T [place] 90 degrees GEMUSE ECG Interpretation Sinus rhythm with Premature supraventricular complexes Left anterior fascicular block Minimal voltage criteria for LVH, may be normal variant Abnormal ECG No previous ECGs available Confirmed by PABLO WESLEY ([id number]) on 12/06/2024 4:29:57 PM GEMUSE 12/06/2024 4:10 PM EST 12/06/2024 4:29 PM EST Pablo Wesley MD ECG ORDERABLES GEMUSE documented in this encounter Visit Diagnoses Diagnosis Paroxysmal atrial fibrillation (CMS/HCC)- Primary Atrial fibrillation Obstructive sleep apnea syndrome Obstructive sleep apnea (adult) (pediatric) Hypertrophic cardiomyopathy (CMS/HCC) Other primary cardiomyopathies Nonrheumatic mitral valve regurgitation documented in this encounter Historical Medications * This list may reflect changes made after this encounter. Medication Sig Dispensed Refills Start Date End Date glipiZIDE (GLUCOTROL XL) 5 mg 24 hr tablet Take 1 tablet (5 mg total) by mouth 1 (one) time each day. Do not crush, chew, or split. added in this encounter Care Teams Boiler Water Tester Relationship Specialty Start Date End Date Jorge Alberto Lebron MD [address] [place] [address] Dr [address] [place] [phone] PCP - General 10/15/13 documented as of this encounter
--- OUTSIDE RECORDS SUMMARY | 2024-12-31 10:02 | XMS_ITS | Clinical Summary ---
Author Organization [facility] Address [address] [place], [place] [address] Phone Care Team Providers Care Air Pollution Inspector Name Role Phone Jorge Alberto Lebron MD Primary Care Provider Allergies Active Allergy Reactions Criticality Noted Date Comments Cat Dander 05/10/2024 Penicillins 02/15/2021 Medications Medication Sig Dispensed Refills Start Date End Date Status ALPHA LIPOIC ACID ORAL Take by mouth 1 (one) time each day. Active melatonin 10 mg tablet Take by mouth if needed. Active apixaban (Eliquis) 5 mg tablet Take 1 tablet (5 mg total) by mouth 2 (two) times a day. 06/09/2024 Active atorvastatin (LIPITOR) 10 mg tablet Take 1 tablet (10 mg total) by mouth 1 (one) time each day. Active cholecalciferol (VITAMIN D-3) 25 mcg (1,000 unit) tablet Take by mouth 1 (one) time each day. Active DULoxetine (CYMBALTA) [address] capsule Take 1 capsule (60 mg total) by mouth 1 (one) time each day. Active empagliflozin (Jardiance) 10 mg tablet Take by mouth 1 (one) time each day. Active famotidine (PEPCID) 20 mg tablet Take 1 tablet (20 mg total) by mouth if needed. Active ibuprofen (ADVIL,MOTRIN) 800 mg tablet Take 1 tablet (800 mg total) by mouth if needed. Active metFORMIN (GLUCOPHAGE) 500 mg tablet Take 1 tablet (500 mg total) by mouth 2 (two) times a day with meals. Active glipiZIDE (GLUCOTROL XL) 5 mg 24 hr tablet Take 1 tablet (5 mg total) by mouth 1 (one) time each day. Do not crush, chew, or split. Active Active Problems Problem Noted Date Diagnosed Date Pneumonia 10/05/2024 Nonrheumatic mitral valve regurgitation 10/05/20 Assessment & Plan (12/06/2024 4:18 PM EST): Severe MR seen in the setting of bacteremia in 2012 subsequently improved to only mild MR following successful antibiotic therapy. Periodic surveillance echocardiography will be pursued. In addition the patient has had severe TR in the past and this has also significantly reduced. The most recent echocardiogram demonstrates slight worsening of mitral regurgitation which is now in the mild to moderate range. Lumbar discitis 10/05/2024 Heart murmur 10/05/2024 Obstructive sleep apnea syndrome 08/13/2021 Assessment & Plan (12/06/2024 4:21 PM EST): Patient has been unable to tolerate CPAP device therapy despite multiple attempts over the years. Positional changes and aggravating factors were reviewed. The patient has obesity, diabetes and sleep apnea syndrome. All 3 of these conditions have been favorably influenced by initiation of GLP-1 receptor agonist therapy. The patient is interested in pursuing this but has concerns about cost. He looks forward to discussing initiation of therapy with Dr. Lebron at the time of their next visit. Paroxysmal atrial fibrillation 08/09/2021 Assessment & Plan (12/06/2024 4:18 PM EST): Paroxysmal atrial fibrillation in the past, with untreated TAYLOR and HCM as likely underlying contributors. He has tolerated Eliquis for stroke prophylaxis. Last episode of Afib was in 2020. Cardioversion was performed. No significant bleeding. The patient has frequent premature supraventricular beats on today's tracing but no evidence of atrial fibrillation. He will continue Eliquis. Hypertrophic cardiomyopathy 02/15/2021 Assessment & Plan (12/06/2024 4:18 PM EST): The patient has asymmetric septal hypertrophy and diffuse LVH but no evident infiltrative disorder by MRI and no clinical evidence of CHF or VT. Encounters Date Type Department Care Team Description 12/06/2024 3:30 PM EST Office Visit [facility] [address] [place] [address] Pablo Wesley MD Paroxysmal atrial fibrillation (CMS/HCC) (Primary Dx); Obstructive sleep apnea syndrome; Hypertrophic cardiomyopathy (CMS/HCC); Nonrheumatic mitral valve regurgitation 11/09/2024 10:00 AM EST Ancillary Procedure [facility] [address] [place] [address] Hypertrophic cardiomyopathy (CMS/HCC); Nonrheumatic mitral valve regurgitation; Heart murmur from Last 3 Months Surgical History Surgery Date Site/Laterality Comments OTHER SURGICAL HISTORY PROCEDURE: [place] RPR PRIMARY OPEN/PRQ RUPTURED ACHILLES W/GRAFT Medical History Medical History Date Comments Nonrheumatic mitral valve regurgitation DX:Nonrheumatic mitral valve regurgitation Heart murmur DX:Heart murmur Pneumonia DX:Pneumonia Lumbar discitis DX:Lumbar discit is Swelling of lower limb DX:Swelli ng of lower limb Depression DX:Depression Discomfort of back DX:Discomfort of back Anemia DX:Anemia Family History Medical History Relation Name Comments Other cancer Father Other cancer Maternal Grandfather Other cancer Maternal Grandmother Other cancer Mother Breast cancer Other Diabetes Other Other cancer Other Other: Peripheral Neuropathy Other Pancreatic cancer Other Uterine cancer Other Relation Name Status Comments Father Maternal Grandfather Maternal Grandmother Mother Other Social History Tobacco Use Types Packs/Day Years [...] file Not on file Not on file Obstetrics History Last Filed Vital Signs Vital Sign Reading [...] Mass Index 32.79 12/06/2024 3:20 PM EST Plan of Treatment Health Maintenance Due Date Last Done Comments Diabetes: Annual Foot Exam 1963 Diabetes: Annual Retina Eye Exam 1963 DTaP,Tdap,and Td Vaccines (1 - Tdap) 1972 Zoster Vaccines (1 of 2) 2003 RSV Immunization Patients 60+ Years Old (1 - Risk 60-74 years 1-dose series) 2013 Pneumococcal Vaccine: 65+ Years (1 of 1 - PCV) 2018 Cholesterol Screening (Lipid Panel) 11/09/2022 Colorectal Cancer Screening: Colonoscopy 11/09/2022 Depression Screening 11/09/2022 Falls Risk Assessment 11/09/2022 Hepatitis C Screening 11/09/2022 Medicare Annual Wellness Visit 11/09/2022 Social Influencers of Health Screening 11/09/2022 Diabetes: Annual GFR (Glomerular Filtration Rate) 02/28/2024 02/27/2023 COVID-19 Vaccine ( season) 2024 Influenza Vaccine (#1) 2024 3, 08/30/2022, 09/05/2021, Additional history exists Diabetes: Annual Urine Albumin-Creatinine Ratio (uACR) 11/09/2024 Diabetes: Blood Sugar Control Test (HGBA1C) 11/09/2024 Hypertension/CHF/CAD Annual BMP Blood Test 11/09/2024 02/27/2023 HIB Vaccines Aged Out No longer eligi ble based on patient's age to complete this topic HPV Vaccines Aged Out No longer eligi ble based on patient's age to complete this topic Hepatitis A Vaccines Aged Out No long er eligible based on patient's age to complete this topic Hepatitis B Vaccines Aged Out No long er eligible based on patient's age to complete this topic IPV Vaccines Aged Out No longer eligi ble based on patient's age to complete this topic MMR Vaccines Aged Out No longer eligi ble based on patient's age to complete this topic Meningococcal ACWY Vaccine Aged Out N o longer eligible based on patient's age to complete this topic RSV Immunization Patients Under 20 months Aged Out No longer eligible based on patient's age to complete this topic Varicella Vaccines Aged Out No longer eligible based on patient's age to complete this topic Procedures Procedure Name Priority Date/Time Associated Diagnosis Comments ECG 12-LEAD Routine 12/06/2024 4:10 PM EST Paroxysmal atrial fibrillation (CMS/HCC) Obstructive sleep apnea syndrome Hypertrophic cardiomyopathy (CMS/HCC) Nonrheumatic mitral valve regurgitation TRANSTHORACIC ECHOCARDIOGRAM (TTE) COMPLETE Routine 11/09/2024 10:30 AM EST Hypertrophic cardiomyopathy (CMS/HCC) Nonrheumatic mitral valve regurgitation Heart murmur from Last 3 Months Results * ECG 12 lead (12/06/2024 4:10 PM EST) Ventricular Rate ECG 90 BPM GEMUSE Atrial Rate 90 BPM GEMUSE P-R Interval 168 ms GEMUSE QRS Duration 106 ms GEMUSE Q-T Interval 370 ms GEMUSE QTc 452 ms GEMUSE P Wave Radom 66 degrees GEMUSE R Radom -76 degrees GEMUSE T Radom 90 degrees GEMUSE ECG Interpretation Sinus rhythm with Premature supraventricular complexes Left anterior fascicular block Minimal voltage criteria for LVH, may be normal variant Abnormal ECG No previous ECGs available Confirmed by PABLO WESLEY ([id number]) on 12/06/2024 4:29:57 PM GEMUSE 12/06/2024 4:10 PM EST 12/06/2024 4:29 PM EST Pablo Wesley MD ECG ORDERABLES GEMUSE * (ABNORMAL) TRANSTHORACIC ECHOCARDIOGRAM (TTE) COMPLETE (11/09/2024 10:30 AM EST) Left Atrium Minor Radom 8.4 cm CV PACS Left Atrium Major Radom 7.3 cm CV PACS LA Area Sys (A2C) 36 cm2 CV PACS LA Area Sys (A4C) 27 cm2 CV PACS LA Volume (BP) 104 mL CV PACS RA Area 23.3 cm2 CV PACS RA 2D Volume 60 mL CV PACS Aortic Sinus Valsalva 3.9 cm CV PACS Ascending Aorta 4.0 cm CV PACS IVC Proximal 2.2 cm CV PACS IVC Proximal 1.4 cm CV PACS IVSD 1.9(A) 0.6 - 1.0 cm CV PACS LVIDD 4.1(A) 4.2 - 5.8 cm CV PACS LVIDS 3.1 2.5 - 4.0 cm CV PACS LVOT Diameter 2.5 cm CV PACS LVOT Mean Darin 0.8 m/s CV PACS LVOT Mean Grad 3 mmHg CV PACS LVOT Mean Grad 3 mmHg CV PACS LVOT Peak VTI 24.2 cm CV PACS LVOT Peak Darin 1.3 m/s CV PACS LVOT Peak Gradient 7 mmHg CV PACS LVPWD 1.4(A) 0.6 - 1.0 cm CV PACS MV E' Tissue Velocity Lateral 8 cm/s CV PACS MV E' Tissue Velocity Septal 5 cm/s CV PACS LVOT Area 4.9 cm2 CV PACS LVOT Stroke Volume 119 mL CV PACS MR PISA Max Velocity 3.1 m/s CV PACS MR Peak Gradient 37 mmHg CV PACS E Wave Deceleration Time 204 119 - 242 ms CV PACS MV Peak A Darin 1.05 m/s CV PACS MV Peak E Darin 0.70 m/s CV PACS PV Acceleration Time 64 ms CV PACS RV Diastolic Basal Dimension 4.0 2.5 - 4.1 cm CV PACS RV S' 19 cm/s CV PACS TAPSE 20 mm CV PACS TR Peak Velocity 2.78 m/s CV PACS TR Peak Gradient 31 mmHg CV PACS E/E' Ratio Septal 14 CV PACS E/E' Ratio Averaged 11 CV PACS Relative Wall Thickness ratio 0.68 CV PACS FS 24 % CV PACS LV Mass 2D 280 g CV PACS LVOT flow 393 mL/s CV PACS E/A Ratio 0.7 CV PACS E/E' Ratio Lateral 9 CV PACS BSA 2.37 m2 CV PACS LA Volume Index (BP) 45 mL/m2 CV PACS LVIDD Index 1.77 cm/m2 CV PACS LVIDS Index 1.34 cm/m2 CV PACS LV Mass Index 2D 121(A) 50 - 102 g/m2 CV PACS LVOT Stroke Index 52 mL/m2 CV PACS RA 2D Volume Index 26 18 - 32 mL/m2 CV PACS Ascending Aorta Index 1.73 cm/m2 CV PACS Right Ventricular Peak Systolic Pressure 46 mmHg CV PACS Est. RA Pressure 15 mmHg CV PACS Anatomical Region Laterality Modality Ultrasound Narrative 11/09/2024 12:21 PM EST Left ventricle cavity size is normal. There is severe asymmetric mid septal hypertrophy. Systolic function is normal with an ejection fraction of 55-60%. There are no regional LV wall motion abnormalities. Moderate mitral regurgitation, central Dilatation of The Sinus of Valsalva is (3.9 cm). The ascending aorta is ?? (4.0 cm). Compared to the prior study from 2022, the degree of mitral regurgitation has increased, aortic dimensions are similar Left Ventricle Left ventricle cavity size is normal. There is severe asymmetric mid septal hypertrophy. Systolic function is normal with an ejection fraction of 55-60%. There are no regional LV wall motion abnormalities. There is no diastolic dysfunction. Right Ventricle Right ventricle cavity is mildly dilated. Systolic function is normal. Left Atrium Left atrium cavity is moderately dilated. Right Atrium Right atrium cavity is normal. IVC/SVC Inferior vena cava is dilated. RA pressures is estimated to be 15 mmHg (IVC diameter >21 mm and decreases <50% during inspiration). Mitral Valve The leaflets are moderately thickened. The leaflets are calcified. There is mild annular calcification. There is moderate regurgitation with a centrally directed jet. There is no significant stenosis noted. Tricuspid Valve Tricuspid valve structure is normal. There is mild regurgitation. There is no significant tricuspid valve stenosis. Aortic Valve Number of aortic valve cusps cannot be determined. The leaflets are not thickened and exhibit normal excursion. There is no regurgitation or stenosis. Pulmonic Valve The pulmonic valve was not well visualized. No significant pulmonic valve regurgitation. No significant pulmonary valve stenosis noted. Ascending Aorta The Sinus of Valsalva is (3.9 cm). The ascending aorta is (4.0 cm). Pericardium Pericardium appears normal. There is no pericardial effusion. Study Details Overall the study quality was adequate. Omar Ching NP CV ECHO PROCEDURES from Last 3 Months Care Teams Air Pollution Inspector Relationship Specialty Start Date End Date Jorge Alberto Lebron MD [address] [place] [address] [address] [place] [address] PCP - General 10/15/13
--- OUTSIDE RECORDS SUMMARY | 2024-12-31 10:02 | XMS_ITS | Encounter Summary ---
Author Organization [facility] Address [address] [place] [address] Care Team Providers Care Vibration Analyst Name Role Phone Sunday Bennett MD Primary Care Provider [phone] Jorge Alberto Huff MD Primary Care Provider [phone] Cecilia Zavala PhD Unavailabl e Encounter Details Date Type Department Care Team (Late st Contact Info) Description 03/14/2017 Scanned Document [facility] [address] [phone] Mikala Magallon MD [address] [place] [phone] Social History Tobacco Use Types Packs/Day Years [...] on filedocumented in this encounter Care Teams Vibration Analyst Relationship Specialty Start Date End Date Sunday Bennett MD [address] [place] [address],[address] [address] PCP - General 01/10/17 08/15/21 Jorge Alberto Huff MD [address] [place] [address] [address] [place] [address] PCP - General Endocrinology 08/16/21 Cecilia Zavala, PhD [address] [place] [address] [address] [place] [address] Clinical Psychologist Psychology 03/22/22 Dr. Jorge Alberto Lebron Physician 01/10/17 documented as of this encounter
--- OUTSIDE RECORDS SUMMARY | 2024-12-31 10:03 | XMS_ITS | Encounter Summary ---
Author Organization [facility] Address [address] [place] [address] Care Team Providers Care Soda Worker Name Role Phone Sunday Bennett MD Primary Care Provider [phone] Jorge Alberto Huff MD Primary Care Provider [phone] Cecilia Zavala PhD Unavailabl e Reason for Visit * Reason Onset Date Comments Medication Problem 01/07/2018 Kathrynricescobar is $ 7 00 at the pharmacy and wants to know if there is any other affordable options. She will call insurance company to see if they can do anything before calling PTC back. Encounter Details Date Type Department Care Team (Late st Contact Info) Description 01/07/2018 Telephone [facility] [address] [place] [phone] Rene Hansen MD [address] [place] [phone] Medication Problem (Lyrica is $ 700 at the pharmacy and wants to know if there is any other affordable options. She will call insurance company to see if they can do anything before calling PTC back. ) Social History Tobacco Use Types Packs/Day Years [...] on filedocumented in this encounter Care Teams Soda Worker Relationship Specialty Start Date End Date Sunday Bennett MD [address] [place] [address],[facility] [address] [facility] [place] [address] PCP - General 01/10/17 08/15/21 Jorge Alberto Huff MD [address] [place] [address] [address] [place] [address] PCP - General Endocrinology 08/16/21 Cecilia Zavala, PhD [address] [place] [address] [address] [place] [address] Clinical Psychologist Psychology 03/22/22 Dr. Jorge Alberto Lebron Physician 01/10/17 documented as of this encounter
== END 2024-12-31 09:28 | disposition home or self-care (01) ==
LOC: HO.BBR 09:27
PROVIDERS: PCP Internal Medicine Endocrinology, Diabetes & Metabolism; Visit Provider Internal Medicine Hematology & Oncology
DX: D75.1 Secondary polycythemia (principal)
CPT/HCPCS: 85014; 85018; 99195

== ENCOUNTER 2025-03-31 09:54 | Outpatient (REF) | payer MEDICARE, SELFPAY ==
--- OUTSIDE RECORDS SUMMARY | 2025-03-31 11:06 | XMS_ITS | Encounter Summary ---
Author Organization [facility] Address [address] [place] [address] Care Team Providers Care Kapok And Cotton Machine Operator Name Role Phone Sunday Bennett MD Primary Care Provider Unavail Jorge Alberto Rendon MD Primary Care Provider [phone] Cecilia Zavala PhD Unavailabl e Reason for Visit * Reason Comments Medication Refill Encounter Details Date Type Department Care Team (Late st Contact Info) Description 04/20/2017 Refill [facility] [address] [place] [phone] Mikala Magallon MD [address] [place] [address] [address] [place] [address] Low back pain Social History Tobacco Use Types Packs/Day Years Used Date Smoking Tobacco: Never Assessed Sex and Gender Information Value Date Recorded Sex Assigned at Male 03/10/2023 8:28 AM EDT Legal Sex Male 5:02 PM EDT Gender Identity Male 03/10/2023 8:28 AM EDT Sexual Orientation Heterosexual (straight) 03/10 8:28 AM EDT documented as of this encounter Plan of Treatment Not on file documented as of this encounter Visit Diagnoses Diagnosis Low back pain Lumbago documented in this encounter Care Teams Kapok And Cotton Machine Operator Relationship Specialty Start Date End Date Sunday Bennett MD PCP - General 01/10/17 08/15/21 Jorge Alberto Huff MD [address] [place] [address] [address] [place] [address] PCP - General Endocrinology 08/16/21 Cecilia Zavala, PhD [address] [place] [address] [address] [place] [address] Clinical Psychologist Psychology 03/22/22 Dr. Jorge Alberto Lebron Physician 01/10/17 documented as of this encounter
--- OUTSIDE RECORDS SUMMARY | 2025-03-31 11:06 | XMS_ITS | Encounter Summary ---
Author Organization [facility] Address [address] [place] [address] Care Team Providers Care Beam Dyer Operator Name Role Phone Sunday Bennett MD Primary Care Provider Unavailab Jorge Alberto Rendon MD Primary Care Provider [phone] Cecilia Zavala PhD Unavailabl e Reason for Visit * Reason Comments Medication Refill Encounter Details Date Type Department Care Team (Late st Contact Info) Description 09/02/2016 Refill [facility] [address] [phone] Mikala Magallon MD [address] [place] [address] Social History Tobacco Use Types Packs/Day Years [...] on filedocumented in this encounter Care Teams Beam Dyer Operator Relationship Specialty Start Date End Date Sunday Bennett MD PCP - General 01/10/17 08/15/21 Jorge Alberto Huff MD [address] [place] [address] [address] [place] [address] PCP - General Endocrinology 08/16/21 Cecilia Zavala, PhD [address] [place] [address] [address] [place] [address] Clinical Psychologist Psychology 03/22/22 Dr. Jorge Alberto Lebron Physician 01/10/17 documented as of this encounter
--- OUTSIDE RECORDS SUMMARY | 2025-03-31 11:06 | XMS_ITS | Encounter Summary ---
Author Organization [facility] Address [address] [place] [address] Care Team Providers Care Plate Stacker Name Role Phone Sunday Bennett MD Primary Care Provider Melissa Jorge Alberto Rendon MD Primary Care Provider [phone] Cecilia Zavala PhD Unavailabl e Reason for Visit * Reason Comments Medication Refill Encounter Details Date Type Department Care Team (Late st Contact Info) Description 12/05/2017 Refill [facility] [address] [phone] Mariann Levin PA [address] [phone] Low back pain, unspecified back pain laterality, [...] unspecified documented in this encounter Care Teams Plate Stacker Relationship Specialty Start Date End Date Sunday Bennett MD PCP - General 01/10/17 08/15/21 Jorge Alberto Huff MD [address] [place] [address] [address] [place] [address] PCP - General Endocrinology 08/16/21 Cecilia Zavala, PhD [address] [place] [address] [address] [place] [address] Clinical Psychologist Psychology 03/22/22 Dr. Jorge Alberto Lebron Physician 01/10/17 documented as of this encounter
--- OUTSIDE RECORDS SUMMARY | 2025-03-31 11:06 | XMS_ITS | Clinical Summary ---
Author Organization [facility] Address [address] [place] [address] Care Team Providers Care Stripe Marker Name Role Phone Jorge Alberto Huff MD Primary Care Provider [phone] Cecilia Zavala PhD Unavailabl e Allergies Active Allergy Reactions Criticality Noted Date Comments Penicillins Unknown/Patient and Family Unable to Define Medium 10/11/2016 Medications * This document contains information received from the source organization and may not represent a complete record from that organization. atorvastatin (LIPITOR) 10 MG tablet every morning. 6 Active cholecalciferol (VITAMIN D3) 1000 units capsule Take 1 capsule (1,000 Units total) by mouth every morning. Active Alpha-Lipoic Acid (LIPOIC ACID PO) Take by mouth every morning. Active famotidine (PEPCID) 20 MG tabletIndication s:Pain in joint, pelvic region and thigh, unspecified laterality TAKE 1 TABLET THREE TIMES A DAY WITH IBUPROFEN 270 tablet 1 8 Active Additional Information Patient taking differently: As needed, TAKE 1 TABLET THREE TIMES A DAY WITH IBUPROFEN, Reason: Other, Reported on 02/25/2023 ONETOUCH VERIO strip daily. for testing 3 9 Active ONETOUCH DELICA LANCETS FINE Misc lancet daily. for testing 3 9 Active Dermatological Products, Misc. (EpiCeram) lotion every morning. 1 Active melatonin 10 MG capsule Take 1 capsule (10 mg total) by mouth nightly. Active Jardiance 10 MG tablet every morning. 2 Active hydrOXYzine HCl (ATARAX) 10 MG tablet as needed. 2 Active metFORMIN (GLUCOPHAGE) 500 MG tablet Take 1 tablet (500 mg total) by mouth 2 (two) times a day. 3 Active DULoxetine (CYMBALTA) 60 MG capsuleIndicatio ns:Polyneuropath y associated with critical illness TAKE 1 CAPSULE BY MOUTH EVERY MORNING 90 capsule 3 Active Eliquis 5 MG tablet Take 5 mg by mouth 2 (two) times a day. 3 Active tirzepatide (Mounjaro) 2.5 mg/0.5 mL pen-injector Inject under the skin. 3 Active Active Problems Problem Noted Date Diagnosed [...] Done Comments Hepatitis C Virus Screening 1955 DTaP/Tdap/Td Vaccines (1 - Tdap) 1972 Colonoscopy [...] this topic Medical Devices Implanted Type Area Back Gray Cloth Washer Device Identifier Shelf Expiration Date Model / Serial / Lot [id number] Trial Lead Kit 50cm Slimtip - [id number] Implanted:Qt y: 1 on 02/05/2023 by Ghassan Tejada MD at [facility] [employer] 09/23/2024 [id number] / [id number] / [id number] Trial Lead Kit 50cm Slimtip - [id number] Implanted:Qt y: 1 on 02/05/2023 by Ghassan Tejada MD at [facility] [employer] 07/21/2024 [id number] / [id number] / [id number] Proclaim Invisible Trial Header, Drg Epg - [id number] Implanted:Qt y: 1 on 02/05/2023 by Ghassan Tejada MD at [facility] [employer] 03/19/2024 [id number] / / [id number] Trial Lead Kit 50cm Slimtip - [id number] Implanted:Qt y: 1 on 02/05/2023 by Ghassan Tejada MD at [facility] Stimulator N/A: Spine Lumbar [employer] 09/23/2024 [id number] / / [id number] Trial Lead Kit 50cm Slimtip - [id number] Implanted:Qt y: 1 on 02/05/2023 by Ghassan Tejada MD at [facility] Stimulator N/A: Spine Lumbar [employer] [id number] 07/21/2024 [id number] 50A / [id number] / [id number] Slim Tip Drg Implanted:Qt y: 1 on 03/10/2023 by Karey Jeong MD at [facility] 06/20/2023 / [id number] / [id number] Slim Tip Drg Implanted:Qt y: 1 on 03/10/2023 by Karey Jeong MD at [facility] 03/11/2024 / [id number] / Proclaim Drg Implanted:Qt y: 1 on 03/10/2023 by Karey Jeong MD at Right: Sacrum Description:Cat#[id number] CONTROL SYSTEM Procedures Procedure Name Priority Date/Time Associated Diagnosis Comments HEMOGLOBIN A1C WITH ESTIMATED AVERAGE GLUCOSE Routine 02/27/2023 9:22 AM EDT Elective surgery from Last 3 Months or Most Recently Relevant to Health Maintenance Results * (ABNORMAL) HEMOGLOBIN A1C WITH ESTIMATED AVERAGE GLUCOSE (02/27/2023 9:22 AM EDT) Hemoglobin A1C 7.1(H) <5.7 % 02/27/2023 3:11 PM EDT [facility] Comment: A1c% ? Interpretation 5.7 - 6.0 ?Increase risk of diabetes 6.1 - 6.4 ?Higher risk of diabetes > or = 6.5 ?? Consistent with diabetes Diabetes Care, 33(Supp 1):S1-S61, 2010 Estimated Average Glucose 157 mg/dL 02/27/2023 3:11 PM EDT [facility] Blood specimen / Unknown 02/27/2023 9:22 AM EDT 02/27/2023 2:36 PM EDT us Sneha Dia PA-C LAB BLOOD ORDERABLES Final Result HOSPITAL LAB See Below [address] [id number] from Last 3 Months or Most Recently Relevant to Health Maintenance Insurance MEDICARE PART A & B [facility] MEDICARE PART A & B [facility] MEDICARE PART A & B [facility] Advance Directives * Full Code (Latest Code Status on File) Date Activated Date Inactivated Comments 03/10/2023 1:37 PM * Full Code Date Activated Date Inactivated Comments 03/10/2023 7:46 AM 03/10/2023 1:37 PM Care Teams Stripe Marker Relationship Specialty Start Date End Date Jorge Alberto Huff MD [address] [place] [id number] PCP - General Endocrinology 08/16/21 Cecilia Zavala, PhD [address] [address] Clinical Psychologist Psychology 03/22/22 Dr. Jorge Alberto Lebron Physician 01/10/17
--- OUTSIDE RECORDS SUMMARY | 2025-03-31 11:06 | XMS_ITS | Continuity of Care Document ---
Author Organization [facility] [address] [place] [address] Phone [phone] Care Team Providers Care Customer Accounts Advisor Name Role Phone Jorge Alberto Lebron M.D. Care Team Information Re ceiver [phone] Problems Active Problems Provider Date Type 2 diabetes mellitus Jorge Alberto Lebron M.D. Onset: 06/27/2022 Atrial fibrillation Jorge Alberto Lebron M.D. 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 Onset: 06/27/2022 Erythrocytosis Jorge Alberto Lebron M.D. Onset: 0 06/27/2022 Social History Type Date Description Comments Sex Unknown Marital Status Has been 1 time Lives With Spouse Tobacco Use Start: Unknown Never Smoked Cigarettes Smoking Status Reviewed: 03/22/25 Never Smoked Cigaret quinn ETOH Use Never used alcohol Allergies and adverse reactions Active Allergies Criticality Reaction Severity Comments Date Penicillins Unable to assess criticality 06/27/2022 Medications Active Medications SIG Qnty Indications Ordering Provider Date Fskaqieuur61pj Tablets 1 tablet by mouth every day 90tabs Jorge Alberto Lebron M.D. 10/20/2024 Wlkqxzmdp0ov Tablets Take 1 Tablet By Mouth Every Day In The Morning 90tabs Jorge Alberto Lebron M.D. 03/25/2024 Ijowxbnnd14lj Tablets Take 1 Tablet By Mouth Every Day 90tabs E11.9 Jorge Alberto Lebron M.D. 11/23/[id number] Part 1 cap by mouth every day 90caps Jorge Alberto Lebron M.D. 04/02/2023 Metformin TEI455lz Tablets Take 1 Tablet By Mouth Twice A Day 180tabs Jorge Alberto Lebron M.D. 06/27/2022 Rumsbrx4xo Tablets Take 1 Tablet By Mouth Twice A Day Unknown Atorvastatin Horkots44sw Tablets Take 1 Tablet By Mouth Every Day 90tabs Jorge Alberto Lebron M.D. Hydroxyzine QEU33cw Tablets Take One Pill Once Daily AT Bedtime For Itch. Unknown Metoprolol Succinate NA273do Tablets ER 24HR 1 tab by mouth every day 90tabs Unknown Fxysjggnhf79lz Tablets 1 tab by mouth every day as needed 60tabs Unknown Vital Signs Date Vital Result Comment 03/22/2025 2:38pm BP Systolic 110 mmHg BP Diastolic 76 mmHg Heart Rate 60 /min Height 72 inches 6'0 Weight 230.38 lb BMI (Body Mass Index) 31.2 kg/m2 Results Test Acquired Date Facility Test Result H/L Range Note Hemoglobin A1c 03/22/2025 Inhouse Hemoglobin A1c 6.9% Glucose Fingerstick 03/22/2025 Inhouse Glucose Fingerstick 151 Glucose Fingerstick 10/20/2024 Inhouse Glucose Fingerstick 177 Hemoglobin A1c 10/20/2024 Inhouse Hemoglobin A1c 7.0% Comp. Metabolic Panel (14) 10/14/2024 [facility] Glucose 142 mg/dL High 70-99 BUN 24 mg/dL 8-27 Creatinine 1.05 mg/dL 0.76-1.27 eGFR 76 mL/min/1.7 3 >59 BUN/Creatinine Ratio 23 10-24 Sodium 141 mmol/L 134-144 Potassium 5.0 mmol/L 3.5-5.2 Chloride 103 mmol/L 96-106 Carbon Dioxide, Total 23 mmol/L 20-29 Calcium 9.5 mg/dL 8.6-10.2 Protein, Total 7.0 g/dL 6.0-8.5 Albumin 4.5 g/dL 3.8-4.8 Globulin, Total 2.5 g/dL 1.5-4.5 Bilirubin, Total 0.4 mg/dL 0.0-1.2 Alkaline Phosphatase 89 IU/L 44-121 Ast (Sgot) 18 IU/L 0-40 Alt (SGPT) 16 IU/L 0-44 Lipid Panel 10/14/2024 [facility] Cholesterol, Total 147 mg/dL 100-199 Triglycerides 146 mg/dL 0-149 HDL Cholesterol 36 mg/dL Low >39 VLDL Cholesterol Freddy 26 mg/dL 5-40 LDL Chol Calc ([facility]) 85 mg/dL 0-99 LDL Calc Comment: TNP Urinalysis, Complete 10/14/2024 [facility] Specific [place] >=1.030 Abnormal 1.005-1.03 0 pH 5.0 5.0-7.5 Urine-Color Yellow Yellow Appearance Clear Clear WBC Esterase Negative Negative Protein 1+ Abnormal Negative/T race Glucose 3+ Abnormal Negative Ketones Trace Abnormal Negative Occult Blood Negative Negative Bilirubin Negative Negative Urobilinogen,Se mi-Qn 0.2 mg/dL 0.2-1.0 Nitrite, Urine Negative Negative Microscopic Examination See below: 1 Microscopic Examination TNP WBC None seen /hpf 0 - 5 RBC 0-2 /hpf 0 - 2 Epithelial Cells (non renal) 0-10 /hpf 0 - 10 Epithelial Cells (renal) TNP Casts None seen /lpf None seen Cast Type TNP Crystals TNP Crystal Type TNP Mucus Threads TNP Bacteria None seen None seen/Few Yeast TNP Trichomonas TNP Comment TNP CBC With Differential/Pl atelet 10/14/2024 [facility] WBC 6.5 x10E3/uL 3.4-10.8 RBC 6.82 x10E6/uL High 4.14-5.80 Hemoglobin 14.4 g/dL 13.0-17.7 Hematocrit 48.7 % 37.5-51.0 MCV 71 fL Low 79-97 MCH 21.1 pg Low 26.6-33.0 MCHC 29.6 g/dL Low 31.5-35.7 RDW 20.0 % High 11.6-15.4 Platelets 211 x10E3/uL 150-450 Neutrophils 62 % Not Estab. Lymphs 22 % Not Estab. Monocytes 10 % Not Estab. Eos 5 % Not Estab. Basos 1 % Not Estab. Immature Cells TNP Neutrophils (Absolute) 4.0 x10E3/uL 1.4-7.0 Lymphs (Absolute) 1.4 x10E3/uL 0.7-3.1 Monocytes([place]) 0.7 x10E3/uL 0.1-0.9 Eos (Absolute) 0.3 x10E3/uL 0.0-0.4 Baso (Absolute) 0.1 x10E3/uL 0.0-0.2 Immature Granulocytes 0 % Not Estab. Immature Grans (Abs) 0.0 x10E3/uL 0.0-0.1 NRBC TNP Hematology Comments: TNP Prostate-Specif ic Ag 10/14/2024 [facility] Prostate-Specif ic Ag 1.1 ng/mL 0.0-4.0 2 TSH+Free T4 10/14/2024 [facility] TSH 4.230 uIU/mL 0.450-4.50 0 T4,Free(Direct) 0.82 ng/dL 0.82- 1.77 Albumin/Creatin ine Ratio, Random Urine 10/14/2024 [facility] Creatinine, Urine 211.9 mg/dL Not Estab. Albumin, Urine 128.2 ug/mL Not Estab. Alb/Creat Ratio 61 mg/gcreat High 0-29 3 Glucose Fingerstick 07/14/2024 Inhouse Glucose Fingerstick 108 Hemoglobin A1c 07/14/2024 Inhouse Hemoglobin A1c 6.7% Glucose Fingerstick 03/25/2024 Inhouse Glucose Fingerstick 137 Hemoglobin A1c 03/25/2024 Inhouse Hemoglobin A1c 7.6% Glucose Fingerstick 11/19/2023 Inhouse Glucose Fingerstick 130 Hemoglobin A1c 11/19/2023 Inhouse Hemoglobin A1c 7.4% Glucose Fingerstick 08/07/2023 Inhouse Glucose Fingerstick 129 Free T4 07/29/2023 [facility] Free T4 0.89 ng/dL (0.70-1.80 ) Urinary Microalbumin 07/29/2023 [facility] Micro-Albumin 134.0 mg/L High (<20) 4 Malb/Creat Ratio 70.9 MG/GM High (0-20) Urine Creat For Micro Albumin 188.9 mg/dL TSH With Reflex To FT4 07/29/2023 [facility] TSH With Reflex To FT4 4.03 uIU/mL (0.4-4.2) Hemoglobin A1c 07/29/2023 [facility] Hemoglobin A1c 7.1 % High (4.0-5.6) 5 PSA 07/29/2023 [facility] PSA 0.9 NG/ML (0-4) 6 Urinalysis Complete 07/29/2023 [facility] Appear/Color YELLOW 7 SP. [place] 1.039 High (1.002-1.0 30) Urine PH 5.5 (5.0-8.0) Urine Albumin 1+ Abnormal (Neg) Urine Glucose 4+ Abnormal (Neg) Urine Ketones NEGATIVE (Neg) Urine Bilirubin NEGATIVE (Neg) Urine Hemoglobin NEGATIVE (Neg) Urine Nitrite NEGATIVE (Neg) Urine Leukocyte NEGATIVE (Neg) Urobilinogen NORMAL mg/dL (Norm) Urine WBCs 1 /HPF (0-5) Urine RBCs 1 /HPF (0-3) Bacteria SLIGHT HPF Abnormal (Neg) Mucus SLIGHT /LPF Hyaline Cast 1 LPF (0-2) Lipid Panel 07/29/2023 [facility] Cholesterol, Total 144 mg/dL (<200) Triglyceride 150 mg/dL High (<150) HDL Chol 37 mg/dL Low (>39) LDL Cholesterol, Calculated 77 mg/dL (0-130) Non HDL Cholesterol (Calc) 107 mg/dL (<160) Comprehensive Metabolic Panl 07/29/2023 [facility] Glucose 151 mg/dL High (70-99) BUN 23 mg/dL (8-23) Creatinine 1.0 mg/dL (0.7-1.2) Sodium 138 mmol/L (133-145) Potassium 5.0 mmol/L (3.6-5.2) Chloride 101 mmol/L (98-107) Bicarbonate 25 mmol/L (22-29) Anion Gap 12 (4-17) Albumin 4.6 GM/DL (3.4-4.8) Calcium 9.4 mg/dL (8.6-10.5) Bilirubin,Total 0.6 mg/dL (0-1.2 ) Total Protein 6.9 GM/DL (6.2-8.2 ) Ag Ratio 2.0 Ast 21 U/L (0-40) Alk Phos 91 U/L (40-129) Alt 24 U/L (0-41) Estimated GFR Creatinine 77 ML/MIN/1.7 3M2 8 Complete Abc With Diff 07/29/2023 [facility] WBC 6.9 K/MM3 (4.0-11.0) RBC 7.24 M/MM3 High (4.70-6.10 ) HGB 15.9 GM/DL (13.7-17.1 ) HCT 54.1 % High (40.5-50.0 ) MCV 74.7 FL Low (80.0-94.0 ) MCH 22.0 pg Low (27.0-34.0 ) MCHC 29.4 g/dL Low (33.0-37.0 ) PLT 172 K/MM3 (150-460) RDW-SD 55.8 FL High (<47.0) MPV NOT MEASURED FL (9.4-12.4) Automated NRBC 0.0 #/100WBC'S Abs. NRBC 0.0 K/MM3 Neut # 4.6 K/MM3 (1.3-7.0) Lymph # 1.4 K/MM3 (0.8-3.1) Lagrange# 0.5 K/MM3 (0.4-1.3) Eo # 0.3 K/MM3 (0.0-0.4) Baso # 0.0 K/MM3 (0.0-0.1) Abs. Imm Gran 0.0 K/MM3 Neut 67.2 % (44-76) Lymph 20.7 % (15-43) Monocyte 7.6 % (4.5-10.5) Eo 3.6 % (0-6) Baso 0.6 % (0-2) Imm Gran 0.3 % Glucose Fingerstick 04/02/2023 Inhouse Glucose Fingerstick 130 Complete Abc With Diff 03/26/2023 [facility] WBC 5.7 K/MM3 (4.0-11.0) RBC 6.08 M/MM3 (4.70-6.10 ) HGB 13.2 GM/DL Low (13.7-17.1 ) HCT 45.8 % (40.5-50.0 ) MCV 75.3 FL Low (80.0-94.0 ) MCH 21.7 pg Low (27.0-34.0 ) MCHC 28.8 g/dL Low (33.0-37.0 ) PLT 205 K/MM3 (150-460) RDW-SD 54.4 FL High (<47.0) MPV NOT MEASURED FL (9.4-12.4) Automated NRBC 0.0 #/100WBC'S Abs. NRBC 0.0 K/MM3 Neut # 3.6 K/MM3 (1.3-7.0) Lymph # 1.3 K/MM3 (0.8-3.1) [place]# 0.6 K/MM3 (0.4-1.3) Eo # 0.2 K/MM3 (0.0-0.4) Baso # 0.1 K/MM3 (0.0-0.1) Abs. Imm Gran 0.0 K/MM3 Neut 63.2 % (44-76) Lymph 21.8 % (15-43) Monocyte 10.1 % (4.5-10.5) Eo 3.7 % (0-6) Baso 0.9 % (0-2) Imm Gran 0.3 % Urinary Microalbumin 03/26/2023 [facility] Micro-Albumin 53.8 mg/L High (<20) 9 Malb/Creat Ratio 39.0 MG/GM High (0-20) Urine Creat For Micro Albumin 138.0 mg/dL TSH With Reflex To FT4 03/26/2023 [facility] TSH With Reflex To FT4 2.99 uIU/mL (0.4-4.2) PSA 03/26/2023 [facility] PSA 1.2 NG/ML (0-4) 10 Hemoglobin A1c 03/26/2023 [facility] Hemoglobin A1c 7.0 % High (4.0-5.6) 11 Urinalysis Complete 03/26/2023 [facility] Appear/Color LIGHT YELLOW 12 SP. [place] 1.042 High (1.002-1.0 30) Urine PH 5.5 (5.0-8.0) Urine Albumin 1+ Abnormal (Neg) Urine Glucose 4+ Abnormal (Neg) Urine Ketones TRACE Abnormal (Neg) Urine Bilirubin NEGATIVE (Neg) Urine Hemoglobin NEGATIVE (Neg) Urine Nitrite NEGATIVE (Neg) Urine Leukocyte NEGATIVE (Neg) Urobilinogen NORMAL mg/dL (Norm) Urine WBCs NONE SEEN /HPF (0-5) Urine RBCs NONE SEEN /HPF (0-3) Mucus SLIGHT /LPF Lipid Panel 03/26/2023 [facility] Cholesterol, Total 124 mg/dL (<200) Triglyceride 72 mg/dL (<150) HDL Chol 39 mg/dL Low (>39) LDL Cholesterol, Calculated 71 mg/dL (0-130) Non HDL Cholesterol (Calc) 85 mg/dL (<160) Comprehensive Metabolic Panl 03/26/2023 [facility] Glucose 121 mg/dL High (70-99) BUN 29 mg/dL High (8-23) Creatinine 1.0 mg/dL (0.7-1.2) Sodium 140 mmol/L (133-145) Potassium 4.7 mmol/L (3.6-5.2) Chloride 105 mmol/L (98-107) Bicarbonate 26 mmol/L (22-29) Anion Gap 9 (4-17) Albumin 4.5 GM/DL (3.4-4.8) Calcium 9.0 mg/dL (8.6-10.5) Bilirubin,Total 0.5 mg/dL (0-1.2 ) Total Protein 6.9 GM/DL (6.2-8.2 ) Ag Ratio 1.9 Ast 15 U/L (0-40) Alk Phos 102 U/L (40-129) Alt 15 U/L (0-41) Estimated GFR Creatinine 83 ML/MIN/1.7 3M2 13 Glucose Fingerstick 12/30/2022 Inhouse Glucose Fingerstick 122 Hemoglobin A1c 12/30/2022 Inhouse Hemoglobin A1c 7.1% Hemoglobin A1c 09/30/2022 Inhouse Hemoglobin A1c 7.2% Glucose Fingerstick 09/30/2022 Inhouse Glucose Fingerstick 132 Glucose Fingerstick 06/27/2022 Inhouse Glucose Fingerstick 132 Hemoglobin A1c 06/27/2022 Inhouse Hemoglobin A1c 7.3% 1 Microscopic was reynold cated and was performed. 2 Chandrakant ECLIA methodol ogy. According to the [place], Serum PSA should decrease and remain at undetectable levels after radical prostatectomy. The AUA defines biochemical recurrence as an initial PSA value 0.2 ng/mL or greater followed by a subsequent confirmatory PSA value 0.2 ng/mL or greater. Values obtained with different assay methods or kits cannot be used interchangeably. Results cannot be interpreted as absolute evidence of the presence or absence of malignant disease. 3 Normal: 0 - 29 Moderately increased: 30 - 300 Severely increased: >300 4 The urine microalbum in test is designed to monitor renal function. When screening for Bence Morales proteinuria, urine electrophoresis is recommended. 5 MONITORING: In known diabetic patients, hemoglobin A1c targets should be discussed with health care provider. DIAGNOSTIC USE: The [place] [employer] (ADA) and the World Health Organization (WHO) recommend the use of HbA1c to diagnose diabetes using a threshold of 6.5%. Patients who have an HbA1c between 5.7% and 6.4% are considered at increased risk for developing diabetes in the future. CAUTION: Falsely low HbA1c results may be observed in patients with hemolytic anemia, homozygous forms of abnormal hemoglobin (e.g. SS, CC, SC), , recent blood loss or hemoglobin F greater than 7%. Fructosamine may be used as an alternate test in these cases. REFERENCE: ADA: Standards of Medical Care in Diabetes 2020, The Journal of Clinical and Applied Research and Education Volume 43, Supplement 1 6 TEST PERFORMED USING THE CHANDRAKANT ELECTROCHEMILLUMINESCENCE TOTAL PSA ASSAY. PSA VALUES OBTAINED WITH OTHER ASSAY METHODS OR KITS CANNOT BE USED INTERCHANGEABLY. 7 CLEAR 8 Creatinine based est imated glomerular filtration (eGFR) in adults is calculated using the National Kidney Foundation recommended 202 CKD-EPI equation. Estimates GFR from serum creatinine, age and sex. 9 The urine microalbum in test is designed to monitor renal function. When screening for Bence Morales proteinuria, urine electrophoresis is recommended. 10 TEST PERFORMED USING THE CHANDRAKANT ELECTROCHEMILLUMINESCENCE TOTAL PSA ASSAY. PSA VALUES OBTAINED WITH OTHER ASSAY METHODS OR KITS CANNOT BE USED INTERCHANGEABLY. 11 MONITORING: In known diabetic patients, hemoglobin A1c targets should be discussed with health care provider. DIAGNOSTIC USE: The [place] [employer] (ADA) and the World Health Organization (WHO) recommend the use of HbA1c to diagnose diabetes using a threshold of 6.5%. Patients who have an HbA1c between 5.7% and 6.4% are considered at increased risk for developing diabetes in the future. CAUTION: Falsely low HbA1c results may be observed in patients with hemolytic anemia, homozygous forms of abnormal hemoglobin (e.g. SS, CC, SC), , recent blood loss or hemoglobin F greater than 7%. Fructosamine may be used as an alternate test in these cases. REFERENCE: ADA: Standards of Medical Care in Diabetes 2020, The Journal of Clinical and Applied Research and Education Volume 43, Supplement 1 12 CLEAR 13 Creatinine based est imated glomerular filtration (eGFR) in adults is calculated using the National Kidney Foundation recommended 202 CKD-EPI equation. Estimates GFR from serum creatinine, age and sex. Medical Devices Description No Information Available Encounters Type Date Location Provider Dx Diagnosis Office Visit 10/20/2024 10:15a Main Office Jorge Alberto Lebron M.D. E11.8 Type 2 diabetes mellitus with unspecified complications D75.1 Secondary polycythem ia I48.91 Unspecified atrial f ibrillation Assessments Date Code Description Provider 03/22/2025 E11.9 Type 2 diabetes mellitus without complications Jorge Alberto Lebron M.D. 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 10/20/2024 D75.1 Secondary polycythemia Jorge Alberto Lebron M.D. 10/20/2024 I48.91 Unspecified atrial fibrillat ion Jorge Alberto Lebron M.D. Plan of Treatment Future Appointment(s):* 08/08/2025 9:15 am - Jorge Alberto Lebron M.D. at Main Office 03/22/2025 - Jorge Alberto Lebron M.D.* E11.9 Type 2 diabetes mellitus without complications Functional Status Description No Information Available Mental Status Description No Information Available Referrals Description No Information Available
--- OUTSIDE RECORDS SUMMARY | 2025-03-31 11:06 | XMS_ITS | Clinical Summary ---
Author Organization [facility] Address [address] [place], [place] [address] Phone Care Team Providers Care Director Of Solutions Architecture Name Role Phone Jorge Alberto Lebron MD Primary Care Provider Allergies Active Allergy Reactions Criticality Noted Date Comments Cat Dander 05/10/2024 Penicillins 02/15/2021 Medications ALPHA LIPOIC ACID ORAL Take by mouth [...] of their next visit. Paroxysmal atrial fibrillation (CMS/HCC V24, CMS /HCC V28) 08/09/2021 Assessment & Plan (12/06/2024 4:18 PM [...] fibrillation. He will continue Eliquis. Hypertrophic cardiomyopathy (CMS/HCC V24, CMS/HC C V28) 02/15/2021 Assessment & Plan (12/06/2024 4:18 PM EST): The patient has asymmetric septal hypertrophy and diffuse LVH but no evident infiltrative disorder by MRI and no clinical evidence of CHF or VT. Encounters Date Type Department Care Team Description 03/02/2025 Telephone [facility] Cardiology [facility] [address] [place] [address] Sunday Bennett MD Congestive Heart Failure 02/27/2025 Telephone [facility] [address] [facility] [address] [place] [address] Marie Betts NP from Last 3 Months Surgical History Surgery Date Site/Laterality Comments OTHER SURGICAL HISTORY PROCEDURE: AR RPR PRIMARY OPEN/PRQ RUPTURED ACHILLES W/GRAFT Medical [...] Recorded Sex Assigned at Not on file Legal Sex Male 11:38 AM EST Gender Identity Not on file Sexual Orientation Not on file Obstetrics History Last Filed [...] 12/06/2024 3:20 PM EST Plan of Treatment Upcoming Encounters Date Type Department Care Team (Late st Contact Info) Description 04/18/2025 2:10 PM EDT Office Visit [facility] [address] [facility] [address] [place] [phone] Omar Ching NP [address] [place] [address] [address] [place] [address] 05/17/2025 9:50 AM EDT Consult [facility] [address] [facility] [address] [place] [phone] Gerald Israel MD [address] [place] [address] 06/09/2025 3:10 PM EDT Office Visit [facility] [address] [place] [phone] Omar Ching NP [address] [place] [address] Dr [address] [place] [address] Health Maintenance Due Date Last Done Comments Diabetes: Annual Foot Exam 1963 Diabetes: Annual Retina Eye Exam 1963 DTaP,Tdap,and Td Vaccines (1 - Tdap) 1972 Pneumococcal Vaccine: 50+ Years (1 of 1 - PCV) 2003 Zoster Vaccines (1 of 2) 2003 RSV Immunization Adult Patients (1 - Risk 60-74 years 1-dose series) 2013 Cholesterol Screening (Lipid Panel) 11/09/2022 Colorectal Cancer Screening: Colonoscopy 11/09/2022 Depression Screening 11/09/2022 Falls Risk Assessment 11/09/2022 Hepatitis C Screening 11/09/2022 Medicare Annual Wellness Visit 11/09/2022 Social Influencers of Health Screening 11/09/2022 Diabetes: Annual GFR (Glomerular Filtration Rate) 02/28/2024 02/27/2023 COVID-19 Vaccine ( season) 2024 Diabetes: Annual Urine Albumin-Creatinine Ratio (uACR) 11/09/2024 Diabetes: Blood Sugar Control Test (HGBA1C) 11/09/2024 Hypertension/CHF/CAD Annual BMP Blood Test 11/09/2024 02/27/2023 Influenza Vaccine (Season Ended) 2025 08/22/2023, 08/30/2022, 09/05/2021, Additional history exists HIB Vaccines Aged Out No longer eligi [...] patient's age to complete this topic Meningococcal B Vaccine Aged Out No l onger eligible based on patient's age to complete this topic RSV Immunization Patients Under 20 months Aged Out No longer eligible based on patient's age to complete this topic Varicella Vaccines Aged Out No longer eligible based on patient's age to complete this topic Insurance MEDICARE [facility] Care Teams Director Of Solutions Architecture Relationship Specialty Start Date End Date Jorge Alberto Lebron MD [address] [place] [address] [address] [place] [address] PCP - General 10/15/13
--- OUTSIDE RECORDS SUMMARY | 2025-03-31 11:06 | XMS_ITS | Encounter Summary ---
Author Organization [facility] Address [address] [place] [address] Care Team Providers Care Project Management Professor Name Role Phone Sunday Bennett MD Primary Care Provider Unavailab Jorge Alberto Rendon MD Primary Care Provider +1- [phone] Cecilia Zavala PhD Unavailabl e Encounter Details Date Type Department Care Team (Late st Contact Info) Description 08/09/2019 Scanned Document [facility] [address] [place] [phone] Cam Claros MD [address] [place] [address] Social History Tobacco Use Types Packs/Day [...] on filedocumented in this encounter Care Teams Project Management Professor Relationship Specialty Start Date End Date Sunday Bennett MD PCP - General 01/10/17 08/15/21 Jorge Alberto Huff MD [address] [place] [address] Drive [facility] [address] [place] [address] PCP - General Endocrinology 08/16/21 Cecilia Zavala, PhD [address] [place] [address] [address] [place] [address] Clinical Psychologist Psychology 03/22/22 Dr. Jorge Alberto Lebron Physician 01/10/17 documented as of this encounter
--- OUTSIDE RECORDS SUMMARY | 2025-03-31 11:06 | XMS_ITS | Encounter Summary ---
Author Organization [facility] Address [address] [place] [address] Care Team Providers Care Investigative Shopper Name Role Phone Sunday Bennett MD Primary Care Provider Unavailab Jorge Alberto Rendon MD Primary Care Provider +1- [phone] Cecilia Zavala PhD [facility] Encounter Details Date Type Department Care Team (Late st Contact Info) Description 03/14/2017 Scanned Document [facility] [address] [place] [phone] Mikala Maglalon MD [address] [place] [address] Social History Tobacco Use Types Packs/Day Years [...] on filedocumented in this encounter Care Teams Investigative Shopper Relationship Specialty Start Date End Date Sunday Bennett MD PCP - General 01/10/17 08/15/21 Jorge Alberto Huff MD [address] [place] [address] PCP - General Endocrinology 08/16/21 Hubert Soni, Cecilia Diamond, PhD [address] [place] [address] Clinical Psychologist Psychology 03/22/22 Dr. Jorge Alberto Lebron Physician 01/10/17 documented as of this encounter
--- OUTSIDE RECORDS SUMMARY | 2025-03-31 11:06 | XMS_ITS | Encounter Summary ---
Author Organization [facility] Address [address] [place] [address] Care Team Providers Care Trailhead Maintenance Worker Name Role Phone Jorge Alberto Huff MD Primary Care Provider +1- [phone] Cecilia Zavala PhD [facility] Encounter Details Date Type Department Care Team (Late st Contact Info) Description 01/06/2023 Telephone [facility] [address] [place] [phone] Ghassan Tejada MD Social History Tobacco Use Types Packs/Day Years [...] illness documented in this encounter Care Teams Trailhead Maintenance Worker Relationship Specialty Start Date End Date Jorge Alberto Huff MD [address] [place] [address] [address] [place] [address] PCP - General Endocrinology 08/16/21 Cecilia Zavala, PhD [address] [place] [address] [address] [place] [address] Clinical Psychologist Psychology 03/22/22 Dr. Jorge Alberto Lebron Physician 01/10/17 documented as of this encounter
--- OUTSIDE RECORDS SUMMARY | 2025-03-31 11:06 | XMS_ITS | Encounter Summary ---
Author Organization [facility] Address [address] [place] [address] Care Team Providers Care Bounty Trapper Name Role Phone Sunday Bennett MD Primary Care Provider Unavailab Jorge Alberto Rendon MD Primary Care Provider +1- [phone] Cecilia Zavala PhD Unavailabl e Reason for Visit * Reason Comments Medication Refill Encounter Details Date Type Department Care Team (Late st Contact Info) Description 07/13/2018 Refill [facility] [address] [phone] Rene Hansen MD [address] [place] [address] Low back pain Social History Tobacco Use [...] Lumbago documented in this encounter Care Teams Bounty Trapper Relationship Specialty Start Date End Date Sunday Bennett MD PCP - General 01/10/17 08/15/21 Jorge Alberto Huff MD [address] [place] [address] [address] [place] [address] PCP - General Endocrinology 08/16/21 Cecilia Zavala, PhD [address] [place] [address] [address] [place] [address] Clinical Psychologist Psychology 03/22/22 Dr. Jorge Alberto Lebron Physician 01/10/17 documented as of this encounter
--- OUTSIDE RECORDS SUMMARY | 2025-03-31 11:06 | XMS_ITS | Encounter Summary ---
Author Organization [facility] Address [address] [place] [address] Care Team Providers Care Instrumentation Designer Name Role Phone Sunday Bennett MD Primary Care Provider Unavailab Jorge Alberto Rendon MD Primary Care Provider +1- [phone] Cecilia Zavala PhD [facility] Encounter Details Date Type Department Care Team (Late st Contact Info) Description 10/15/2017 Scanned Document [facility] [address] [place] [phone] Mikala Magallon MD [address] [place] [address] Social History Tobacco Use Types Packs/Day Years [...] on filedocumented in this encounter Care Teams Instrumentation Designer Relationship Specialty Start Date End Date Sunday Bennett MD PCP - General 01/10/17 08/15/21 Jorge Alberto Huff MD [address] [place] [address] PCP - General Endocrinology 08/16/21 Hubert Soni, Cecilia Diamond, PhD [address] [place] [address] Clinical Psychologist Psychology 03/22/22 Dr. Jorge Alberto Lebron Physician 01/10/17 documented as of this encounter
--- OUTSIDE RECORDS SUMMARY | 2025-03-31 11:06 | XMS_ITS | Encounter Summary ---
Author Organization [facility] Address [address] [place] [address] Care Team Providers Care Sheet Layer Name Role Phone Sunday Bennett MD Primary Care Provider Unavailab Jorge Alberto Rendon MD Primary Care Provider +1- [phone] Cecilia Zavala PhD Unavailabl e Reason for [...] (Late st Contact Info) Description 01/07/2018 Telephone [facility] [address] [place] [phone] Rene Hansen MD [address] [place] [id number] Medication Problem (Lyrica is $ 700 at [...] on filedocumented in this encounter Care Teams Sheet Layer Relationship Specialty Start Date End Date Sunday Bennett MD PCP - General 01/10/17 08/15/21 Jorge Alberto Huff MD [address] [place] [address] [address] [place] [address] PCP - General Endocrinology 08/16/21 Cecilia Zavala, PhD [address] [place] [address] Clinical Psychologist Psychology 03/22/22 Dr. Jorge Alberto Lebron Physician 01/10/17 documented as of this encounter
--- OUTSIDE RECORDS SUMMARY | 2025-03-31 11:06 | XMS_ITS | Encounter Summary ---
Author Organization [facility] Address [address] [place] [address] Care Team Providers Care Speech And Language Tutor Name Role Phone Sunday Bennett MD Primary Care Provider Unavail Jorge Alberto Rendon MD Primary Care Provider +1- [phone] Cecilia Zavala PhD Unavailabl e Reason for Visit * Reason Comments Medication Refill Encounter Details Date Type Department Care Team (Late st Contact Info) Description 11/09/2016 Refill [facility] [address] [phone] Mikala Magallon MD [address] [place] [address] Social History Tobacco Use Types Packs/Day Years [...] on filedocumented in this encounter Care Teams Speech And Language Tutor Relationship Specialty Start Date End Date Sunday Bennett MD PCP - General 01/10/17 08/15/21 Jorge Alberto Huff MD [address] [place], [place] [phone] PCP - General Endocrinology 08/16/21 Cecilia Zavala, PhD [address] [place] [address] [address] [place] [address] Clinical Psychologist Psychology 03/22/22 Dr. Jorge Alberto Lebron Physician 01/10/17 documented as of this encounter
--- OUTSIDE RECORDS SUMMARY | 2025-03-31 11:06 | XMS_ITS | Encounter Summary ---
Author Organization [facility] Address [address] [place] [address] Care Team Providers Care Chin Strap Maker Name Role Phone Sunday Bennett MD Primary Care Provider Melissa Jorge Alberto Rendon MD Primary Care Provider +1- [phone] Cecilia Zavala PhD Unavailabl e Reason for Visit * Reason Comments Medication Refill Encounter Details Date Type Department Care Team (Late st Contact Info) Description 10/07/2019 Refill [facility] [address] [facility] [address] [place] [phone] Mariann Levin PA [address] [address] Low back pain Social History Tobacco Use [...] Lumbago documented in this encounter Care Teams Chin Strap Maker Relationship Specialty Start Date End Date Sunday Bennett MD PCP - General 01/10/17 08/15/21 Jorge Alberto Huff MD [address] [place] [address] 210 [place] [address] PCP - General Endocrinology 08/16/21 Cecilia Zavala, PhD [address] [place] [address] [address] [place] [address] Clinical Psychologist Psychology 03/22/22 Dr. Jorge Alberto Lebron Physician 01/10/17 documented as of this encounter
== END 2025-03-31 09:55 | disposition home or self-care (01) ==
LOC: HO.BBR 09:54
PROVIDERS: PCP Internal Medicine Endocrinology, Diabetes & Metabolism; Visit Provider Internal Medicine Hematology & Oncology
DX: D75.1 Secondary polycythemia (principal)
CPT/HCPCS: 85014; 85018; 99195